=== PATIENT | female | born 1935 | race Caucasian/White ===

== ENCOUNTER 2019-04-29 20:38 | Inpatient (IN) | payer MEDICARE, OTHER ==
[2019-04-29] MEDS ORDERED: HYDROmorphone 1 MG/ML Syringe IVPUSH STA (22:09)
[2019-04-29] MEDS ORDERED: Ondansetron 4 MG/2 ML SDV IVPUSH ONE (22:09)
--- NOTE | 2019-04-29 22:19 | EDM.PDOC ---
ED HPI GENERAL MEDICAL PROBLEM - General Chief Complaint: Cardiovascular Problem Stated Complaint: NECK PAIN NAUSEA Time Seen by Provider: 04/29/19 21:21 Source of Information: Reports: Patient, Family (, daughter) History Limitations: Reports: No Limitations - History of Present Illness INITIAL COMMENTS - FREE TEXT/NARRATIVE: Mrs. Cook is a pleasant 84-year-old woman with a past medical history significant for paroxysmal atrial fib/flutter, on Eliquis and Coreg. The patient states that she developed generalized weakness this morning, then nausea , vomiting, and epigastric abdominal pain that radiated up her central chest and to her right scapular area around 17:00 this evening, while eating dinner that consisted of a tater-tot hot plate. Around 20:00, the pain began radiating up to the left side of her neck. Here in the ED, the patient's initial ECG finds her to be in atrial flutter with 2:1 conduction. According to the patient' s daughter and , who accompanied her to the ED tonight, the first documented case of atrial fib/flutter was on 11/13/2018, however, the symptoms that she experienced were similar to 3 years ago, although at that time she was not found to be in atrial fibrillation or flutter. They state that the patient was eating pizza when her symptoms began on 11/13/2018, and steak when her symptoms began 3 years ago. The patient has a history of a hiatal hernia and GERD, for which she takes pantoprazole every morning, however, her daughter tells me that she forgot to take it this morning. She attempted to take it around 19:00 tonight, but by that time she was already vomiting. Medical records provided by the patient's daughter indicate that the patient underwent an echocardiogram on 04/03/2019, finding a LVEF of 65-70% and grade 1 diastolic dysfunction. The patient's PCP is Dr. Isaias Corbett. Her peer educator is Dr. Cammie Gallego. The patient did not receive an influenza vaccine this season, and declined to receive one here. Left Chest Pain Score (Numeric/FACES): 10 - Related Data Allergies Allergy/AdvReac Type Severity Reaction Status Date / Time clindamycin Allergy Cannot Verified 04/29/19 20:54 Remember Penicillins Allergy Cannot Verified 04/29/19 20:54 Remember shellfish derived Allergy Cannot Verified 04/29/19 20:54 Remember morphine AdvReac Anxiety Verified 04/29/19 20:54 pumice Allergy Swelling Uncoded 04/29/19 20:54 Home Meds: Home Meds Pantoprazole [ProTONIX Granules] 40 mg PO DAILY #14 packet 02/09/14 [Rx] Enalapril Maleate 5 mg PO DAILY 11/13/18 [History] Apixaban [Eliquis] 5 mg PO BID #30 tablet 11/16/18 [Rx] Chlorthalidone 12.5 mg PO DAILY 04/29/19 [History] Vitamin B Complex 1 each PO DAILY 04/29/19 [History] atorvaSTATin [Lipitor] 10 mg PO DAILY 04/29/19 [History] carvediloL [Coreg] 3.125 mg PO BID 04/29/19 [History] Past Medical History HEENT History: Reports: Impaired Vision Other HEENT History: wears eyeglasses Cardiovascular History: Reports: Afib (paroxysmal), High Cholesterol, Hypertension Gastrointestinal History: Reports: Colon Polyp, Diverticulosis, GERD, Hiatal Hernia [employer] History: Reports: Musculoskeletal History: Reports: Osteoarthritis - Infectious Disease History Infectious Disease History: Reports: Chicken Pox, Measles - Past Surgical History HEENT Surgical History: Reports: Cataract Surgery, Tonsillectomy GI Surgical History: Reports: Colonoscopy (x 2 or 3), EGD (x 1) Female Surgical History: Reports: Hysterectomy (complete) Musculoskeletal Surgical History: Reports: Knee Replacement (bilateral) Oncologic Surgical History: Reports: Biopsy of Breast (right - benign) Social & Family History - Family History Family Medical History: Noncontributory - Tobacco Use Smoking Status *Q: Never Smoker - Caffeine Use Caffeine Use: Reports: Coffee - Alcohol Use Alcohol Use History: No - Recreational Drug Use Recreational Drug Use: No - Living Situation & Occupation Living situation: Reports: , with Spouse Occupation: Retired ED ROS GENERAL - Review of Systems Review Of Systems: Comprehensive ROS is negative, except as noted in HPI. ED EXAM, GENERAL - Physical Exam Exam: See Below Exam Limited By: No Limitations General Appearance: Alert, WD/WN, Mild Distress (vomited) Eye Exam: Bilateral Eye: EOMI, Normal Inspection Ears: Normal External Exam, Hearing Grossly Normal Nose: Normal Inspection Throat/Mouth: Normal Inspection, Normal Lips, Normal Voice, No Airway Compromise Head: Atraumatic, Normocephalic Neck: Normal Inspection, Full Range of Motion Respiratory/Chest: No Respiratory Distress, Lungs Clear, Normal Breath Sounds, No Accessory Muscle Use Cardiovascular: Normal Peripheral Pulses, Regular Rate, Rhythm (at the time of my exam), No Edema, No Gallop, No JVD, No Murmur, No Rub Peripheral Pulses: 4+: Radial (L), Radial (R) GI/Abdominal: Normal Bowel Sounds, Soft, Non-Tender (palpation of the abdomen induces epigastric pain and pain travelling up central chest), No Organomegaly, No Distention, No Abnormal Bruit, No Mass (Female) Exam: Deferred Rectal (Female) Exam: Deferred Back Exam: Normal Inspection, Full Range of Motion. No: CVA Tenderness (L), CVA Tenderness (R) Extremities: Normal Inspection, Normal Range of Motion, No Pedal Edema, Normal Capillary Refill Neurological: Alert, Oriented, Normal Cognition, No Motor/Sensory Deficits Psychiatric: Normal Affect Skin Exam: Warm, Dry, Intact, Normal Color, No Rash EKG INTERPRETATION EKG Date: 04/29/19 Time: 20:48 Rhythm: A-Flutter (2:1 conduction) Rate (Beats/Min): 139 [place]: Normal P-Wave: Absent QRS: Normal ST-T: Depressed (anterior leads, likely 2 rate) QT: Prolonged (QTc 539 ms) Comparison: No Change (11/13/2018 @ 19:05) Course - Vital Signs Last Recorded V/S: Last Vital Signs Temp 35.9 C 04/29/19 20:49 Pulse 137 H 04/29/19 20:49 Resp 15 04/30/19 03:00 BP 146/95 H 04/29/19 20:49 Pulse Ox 97 04/29/19 20:49 - Orders/Labs/Meds Orders: Active Orders 24 hr Category Date Time Status EKG 12 Lead [EKG Documentation Completion] [RC] ROUTINE Care 04/29/19 20:50 Active EKG Documentation Completion [RC] STAT Care 04/29/19 22:13 Active Abdomen Pelvis w Cont [CT] Stat Exams 04/29/19 22:09 Taken Chest 1V Frontal [CR] Stat Exams 04/29/19 22:11 Taken TROPONIN I [CHEM] Stat Lab 04/30/19 06:44 Ordered Diltiazem 125 mg Med 04/29/19 23:00 Active Sodium Chloride 0.9% [Normal Saline] 100 ml IV TITRATE Sodium Chloride 0.9% [Normal Saline] 1,000 ml Med 04/29/19 22:15 Active IV ASDIRECTED Medication Orders Sodium Chloride (Normal Saline) 1,000 mls @ 150 mls/hr IV ASDIRECTED ELIF Last Admin: 04/29/19 22:23 Dose: 150 mls/hr Diltiazem HCl 125 mg/ Sodium (Chloride) 125 mls @ 5 mls/hr IV TITRATE ELIF; Protocol Last Titration: 04/30/19 03:55 Dose: 0 mg/hr, 0 mls/hr Admin: 04/30/19 00:35 Dose: 5 mg/hr, 5 mls/hr Labs: Laboratory Tests 04/29/19 04/29/19 04/29/19 Range/Units 20:50 20:50 22:32 WBC 10.48 H (3.98-10.04) K/mm3 RBC 4.85 (3.98-5.22) M/mm3 Hgb 15.3 D (11.2-15.7) gm/dl Hct 45.1 H (34.1-44.9) % MCV 93.0 (79.4-94.8) fl MCH 31.5 (25.6-32.2) pg MCHC 33.9 (32.2-35.5) g/dl RDW Std Deviation 49.0 H (36.4-46.3) fL Plt Count 238 (182-369) K/mm3 MPV 12.3 (9.4-12.3) fl Neutrophils % (Manual) 69 H (40-60) % Band Neutrophils % 3 (0-10) % Lymphocytes % (Manual) 26 (20-40) % Atypical Lymphs % 0 % Monocytes % (Manual) 1 L (2-10) % Eosinophils % (Manual) 1 (0.7-5.8) % Basophils % (Manual) 0 L (0.1-1.2) Platelet Estimate Adequate RBC Morph Comment Normal Sodium 142 (136-145) mEq/L Potassium 3.9 (3.5-5.1) mEq/L Chloride 103 (98-107) mEq/L Carbon Dioxide 30 (21-32) mEq/L Anion Gap 12.9 (5-15) BUN 31 H (7-18) mg/dL Creatinine 1.2 H (0.55-1.02) mg/dL Est Cr Clr Drug Dosing 25.51 mL/min Estimated GFR (MDRD) 43 (>60) mL/min BUN/Creatinine Ratio 25.8 H (14-18) Glucose 153 H (83-115) mg/dL Calcium 9.7 (8.5-10.1) mg/dL Magnesium 1.9 (1.8-2.4) mg/dl Total Bilirubin 0.6 (0.2-1.0) mg/dL AST 19 (15-37) U/L ALT 22 (14-59) U/L Alkaline Phosphatase 73 (46-116) U/L Troponin I < 0.017 (0.00-0.056) ng/mL Total Protein 7.4 (6.4-8.2) g/dl Albumin 4.4 (3.4-5.0) g/dl Globulin 3.0 gm/dL Albumin/Globulin Ratio 1.5 (1-2) Lipase 194 (73-393) U/L TSH 3rd Generation 7.539 H (0.358-3.74) uIU/mL Urine Color Yellow (Yellow) Urine Appearance Clear (Clear) Urine pH 5.5 (5.0-8.0) Ur Specific [place] > or = 1.030 (1.005-1.030) Urine Protein 1+ H (Negative) Urine Glucose (UA) Negative (Negative) Urine Ketones 2+ H (Negative) Urine Occult Blood 1+ H (Negative) Urine Nitrite Negative (Negative) Urine Bilirubin Negative (Negative) Urine Urobilinogen 0.2 (0.2-1.0) Ur Leukocyte Esterase Negative (Negative) Urine RBC 0-5 (0-5) /hpf Urine WBC Not seen (0-5) /hpf Ur Epithelial Cells Not seen (0-5) /hpf Urine Bacteria Few (FEW) /hpf Hyaline Casts 0-5 (0-5) /lpf Urine Mucus Few (FEW) /hpf Meds: Medications Generic Name Dose Route Start Last Admin Trade Name Freq PRN Reason Stop Dose Admin Sodium Chloride 1,000 mls @ 150 mls/hr 04/29/19 22:15 04/29/19 22:23 Normal Saline IV 150 mls/hr ASDIRECTED ELIF Administration Diltiazem HCl 125 mg/ Sodium 125 mls @ 5 mls/hr 04/29/19 23:00 04/30/19 03:55 Chloride IV 0 mg/hr TITRATE ELIF 0 mls/hr Titration Protocol 5 MG/HR Discontinued Medications Generic Name Dose Route Start Last Admin Trade Name Mariah PRN Reason Stop Dose Admin Hydromorphone HCl 0.5 mg 04/29/19 22:09 04/29/19 22:22 Dilaudid IVPUSH 04/29/19 22:10 0.5 mg ONETIME STA Administration Hydromorphone HCl 0.5 mg 04/30/19 00:36 04/30/19 06:39 Dilaudid IVPUSH 04/30/19 00:37 Not Given ONETIME ONE Hydromorphone HCl 0.5 mg 04/30/19 03:36 04/30/19 03:38 Dilaudid IVPUSH 04/30/19 03:37 0.5 mg ONETIME ONE Administration Hydromorphone HCl Confirm 04/30/19 03:36 04/30/19 06:39 Dilaudid Administered 04/30/19 03:37 Not Given Dose 0.5 mg .ROUTE .STK-MED ONE Ondansetron HCl 4 mg 04/29/19 22:09 04/29/19 22:22 Zofran IVPUSH 04/29/19 22:10 4 mg ONETIME ONE Administration Ondansetron HCl 4 mg 04/30/19 03:36 04/30/19 03:38 Zofran IVPUSH 04/30/19 03:37 4 mg ONETIME ONE Administration Ondansetron HCl Confirm 04/30/19 03:35 04/30/19 06:39 Zofran Administered 04/30/19 03:36 Not Given Dose 4 mg .ROUTE .STK-MED ONE - Re-Assessments/Exams Free Text/Narrative Re-Assessment/Exam: 04/29/19 22:12 The patient's initial ECG, obtained by her nurse, found her to be in atrial flutter with 2:1 conduction, however, when I was examining the patient, her secured entrance monitor indicated that she was in a normal sinus rhythm. Looking at her secured entrance monitor at this time, the patient appears to be in atrial fibrillation with RVR. I will order a second ECG to confirm. The exact etiology of the patient's symptoms is not clear. She has similar symptoms to what she was experiencing on 11/13/2018, and was found at that time to be in A-fib/flutter with RVR. Her symptoms resolved after she converted to a normal sinus rhythm. This would suggest that her symptoms were due to the A-fib/ flutter, however, while the patient was in A-flutter initially tonight, her symptoms have persisted even though she has converted, at least temporarily, to a normal sinus rhythm. The patient is reporting epigastric pain radiating upper chest, strongly suggesting that her symptoms are due to GERD, especially since the daughter notes to me that the patient forgot to take her pantoprazole this morning. There is always the possibility, however, that the patient is suffering from recurrent biliary colic. Less likely, the patient is suffering from pancreatitis. I have ordered a workup that includes a lipase and a CT scan of her abdomen and pelvis, primarily to rule out other etiologies. In the meantime, the patient will be given Dilaudid, Zofran, and IV fluid. 04/29/19 23:00 The patient's second ECG, dated 04/29/2019 at 22:31, demonstrates atrial fibrillation with RVR at 122 bpm and there are 2 PVCs. There are mild ST depressions in II and V2-V6, but with no T-wave inversions. There is late transition. 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 No LVH or RVH. No intraventricular conduction delays. The QTc is prolonged at 503 ms. Due to the atrial fibrillation, I have ordered a diltiazem drip to be started at 5 mg/hr. 04/29/19 23:07 It appears that the patient is back in a normal sinus rhythm. I have discussed this with the patient's nurse, Rita MACE. I will leave the diltiazem order in place, and Rita MACE will start the diltiazem only if the patient returns to atrial fibrillation with RVR. 04/29/19 23:57 Portable chest radiograph reviewed. There is cardiomegaly, but no pulmonary vascular congestion or pleural effusions seen on this AP view to suggest decompensated CHF. No focal infiltrate. No pneumothorax. There is a large hiatal hernia. Formal read per the Radiologist pending. The patient's CBC is remarkable for a WBC count mildly elevated at 10.48, with 3 % bandemia. Her Hct is slightly elevated at 45.1, with the remainder of her CBC being unremarkable. Her CMP is remarkable for a BUN/Cr being elevated at 31/1.2, and a blood glucose being elevated at 153. The remainder of her CMP is unremarkable. Her magnesium level is within normal limits at 1.9. Her lipase level is within normal limits at 194. Her troponin is undetectably low. Her TSH is substantially elevated at 7.539. Her urinalysis is unremarkable. The patient's BUN/Cr was 25/1.1 on 11/14/2018, with a blood glucose of 149. 04/30/19 01:01 CT of the abdomen and pelvis with oral and IV contrast is read by Maxine as " There is a moderate-sized hiatal hernia." With respect to the gallbladder, the body of the report reads "No calcified gallstones. No ductal dilation." 04/30/19 01:29 Test results discussed with the patient and her daughter; the patient's has gone home. The patient is still complaining of some pain and nausea. As best I can tell, the patient's pain is due to GERD, not due to gallbladder disease. She has been given 2 doses of Dilaudid 0.5 mg so far, and may have as much as she wants, however, she was notified that one of the side effects of Dilaudid is nausea. As we speak, the patient appears to be in a normal sinus rhythm, but the plan will be to keep her here in the ED overnight and give her diltiazem as needed when she goes into either atrial fibrillation or atrial flutter. I will then contact the Hospitalist in the morning to see if he would agree to placing the patient into observation. Both patient and her daughter are agreeable. 04/30/19 06:40 The patient has been in a normal sinus rhythm, not requiring any diltiazem, for the past several hours. She told Rita MACE that she is feeling considerably better. Case discussed with Dr. Gonsalez at 06:36. He is willing to place the patient into observation, if the patient wishes to come in. 04/30/19 06:43 The above was discussed with the patient. She states that in fact she is not feeling very well, and would prefer to come in. Although the patient's initial troponin was drawn about 4 hours after the onset of her symptoms and was undetectably low, I will order a second troponin now, for Dr. Gonsalez to review. Departure - Departure Time of Disposition: 06:45 Disposition: Refer to Observation Condition: Good Clinical Impression: Atrial fibrillation and flutter, GERD (gastroesophageal reflux disease), Chronic renal insufficiency, Hyperglycemia, Hypothyroid Referrals: Isaias Corbett Jr, MD [Primary Care Provider] - Cammie Gallego MD [Physician] - Forms: ED Department Discharge Sepsis Event Note - Evaluation Sepsis Screening Result: No Definite Risk - Focused Exam Vital Signs: Vital Signs Temp Pulse Resp BP Pulse Ox 04/30/19 03:00 15 04/30/19 02:00 14 04/30/19 01:35 16 04/29/19 20:49 35.9 C 137 H 18 146/95 H 97 Date Exam was Performed: 04/30/19 Time Exam was Performed: 06:48 - My Orders Last 24 Hours: My Active Orders 04/29/19 20:50 EKG 12 Lead [EKG Documentation Completion] [RC] ROUTINE 04/29/19 22:09 Abdomen Pelvis w Cont [CT] Stat 04/29/19 22:11 Chest 1V Frontal [CR] Stat 04/29/19 22:13 EKG Documentation Completion [RC] STAT 04/29/19 22:15 Sodium Chloride 0.9% [Normal Saline] 1,000 ml IV ASDIRECTED 04/29/19 23:00 Diltiazem 125 mg Sodium Chloride 0.9% [Normal Saline] 100 ml IV TITRATE 04/30/19 06:44 TROPONIN I [CHEM] Stat - Assessment/Plan Last 24 Hours: My Active Orders 04/29/19 20:50 EKG 12 Lead [EKG Documentation Completion] [RC] ROUTINE 04/29/19 22:09 Abdomen Pelvis w Cont [CT] Stat 04/29/19 22:11 Chest 1V Frontal [CR] Stat 04/29/19 22:13 EKG Documentation Completion [RC] STAT 04/29/19 22:15 Sodium Chloride 0.9% [Normal Saline] 1,000 ml IV ASDIRECTED 04/29/19 23:00 Diltiazem 125 mg Sodium Chloride 0.9% [Normal Saline] 100 ml IV TITRATE 04/30/19 06:44 TROPONIN I [CHEM] Stat
[2019-04-29] MEDS: Sodium Chloride 0.9% 1,000 ML IV SCH (22:23)
[2019-04-29] MEDS ORDERED: Diltiazem 125 MG in Sodium Chloride 0.9% 100 ML IV SCH (23:00)
[2019-04-30] MEDS ORDERED: HYDROmorphone 0.5 MG/0.5 ML Syringe IVPUSH ONE ×2 (00:36→03:36)
[2019-04-30] MEDS ORDERED: Ondansetron 4 MG/2 ML SDV ONE (03:35)
[2019-04-30] MEDS ORDERED: Ondansetron 4 MG/2 ML SDV IVPUSH ONE (03:36)
[2019-04-30] MEDS ORDERED: HYDROmorphone 0.5 MG/0.5 ML Syringe ONE (03:36)
--- NOTE | 2019-04-30 09:39 | US ---
Abdominal ultrasound: Multiple real-time images of the abdomen were obtained. Comparison: Previous CT study of the abdomen and pelvis dated 04/29/19. Visualized portions of the pancreas shows no discrete abnormality. Liver shows no focal abnormality. Gallbladder contains no shadowing gallstones. No gallbladder wall thickening is seen. Common bile duct measures within normal limits. Right kidney shows no hydronephrosis or mass and has a length of 9.7 cm. Left kidney is smaller than the right kidney with generalized cortical atrophy. Left kidney measures 8.3 cm in size. Spleen size is normal. Aorta shows no aneurysm. Inferior vena cava is patent. Portal vein shows normal hepatopedal flow. Impression: 1. Cortical thinning of the left kidney compatible with atrophy. 2. No additional abnormality is appreciated on abdominal ultrasound exam. Diagnostic code #2 This report was dictated in [place] Standard Time
--- NOTE | 2019-04-30 11:03 | CT ---
CT abdomen and pelvis Technique: Multiple axial sections were obtained from above the dome of the diaphragm inferiorly through the pubic symphysis. Delayed images were also obtained through the abdomen and pelvis. Intravenous contrast was utilized. No oral contrast has been given. Comparison: Prior CT abdomen and pelvis exam of 11/13/18. Findings: Moderately large hiatal hernia is noted. Findings are stable from previous exam. Visualized lung bases show nothing acute. Liver contains no focal parenchymal abnormality. Spleen appears normal in size. Small low density lesion is seen inferiorly within the spleen measuring 7 mm. This is not definitely appreciated on the prior noncontrast exam. This is most likely benign. Adrenal glands show no nodule. Pancreas is within normal limits. Cortical thinning noted within the left kidney compatible with generalized atrophy. Small low density finding is noted within the right kidney most likely representing a minimal cortical cyst. Aorta shows diffuse atherosclerotic calcification with no aneurysm. This atherosclerotic calcification continues into the iliac vessels. No retroperitoneal adenopathy is seen. No pelvic mass or adenopathy is noted. No free fluid or inflammatory change is identified. Appendix felt to be visualized and is normal in size. Descending colon shows diverticuli with no inflammatory change. Diverticuli are also noted within portions of the sigmoid colon. Delayed images show contrast within nondilated ureters as well as contrast within the bladder. Diffuse degenerative change is noted within the spine with scoliosis. No acute osseous finding is seen. Impression: 1. Multiple findings as noted above. 2. Nothing acute is appreciated on CT study of the abdomen and pelvis. Diagnostic code #2 This report was dictated in [place] Standard Time I agree with preliminary report issued by [facility] ([facility] report finalized on 04/30/19, 1:45 AM Central Time.
[2019-04-30] MEDS ORDERED: Acetaminophen 325 MG Tab PO PRN (11:30)
[2019-04-30] MEDS ORDERED: Ondansetron 4 MG/2 ML SDV IV PRN (11:30)
--- NOTE | 2019-04-30 11:39 | PCM.HP.2 ---
H&P History of Present Illness - General Date of Service: 04/30/19 Admit Problem/Dx: Admission Diagnosis/Problem Admission Diagnosis/Problem Afib, Atrial fibrillation and flutter - History of Present Illness Initial Comments - Free Text/Narative: Patient presented to the emergency room last night after eating a hamburger hot dish and developing chest pressure after she was unable to swallow a bite. Patient started to vomit and developed shortness of breath. Patient was then brought to the emergency room where she was in and out of atrial fibrillation and atrial flutter requiring a diltiazem drip to be started, stopped, and then restarted. Patient had a similar episode occur in November and was started on Coreg 6.25 mg twice daily. Patient was unable to take her evening dose of Coreg and has not had the morning dose. Patient did see her core blower operator on April 16 and had a Liv scan Cardiolite stress test in November. Both were reportedly normal. Currently patient is back into sinus rhythm and not on her diltiazem drip. CT scan performed previously showed a large hiatal hernia and a repeat CT scan done in the emergency room confirmed a nonprogressive hiatal hernia. Multiple abnormal findings on CT scan but nothing acute. Abdominal ultrasound was also performed which showed thinning of the renal cortices but no gallstones or dilatation of the common bile duct. Echocardiogram done on April 03, 2019 showed a normal left ventricular ejection fraction of 65 to 70 % with grade 1 diastolic dysfunction. EKG done last night showed atrial flutter with a 2-1 conduction at 140 bpm. Depressed anterior leads likely secondary to rate. Prolonged QTC at 539 ms. Laboratory test in the emergency room: WBC 10.48, hemoglobin 15.3, platelets 238 , sodium 142, potassium 3.9, BUN 31, creatinine 1.2, estimated GFR 43 with creatinine clearance drug dosing of 25.5. UA negative for WBCs and 0-5 RBCs. TSH is elevated at 7.539, in November it was 4.104 with a normal free T4. Left Chest Pain Score (Numeric/FACES): 10 - Related Data Allergies/Adverse Reactions: Allergies Allergy/AdvReac Type Severity Reaction Status Date / Time clindamycin Allergy Cannot Verified 04/30/19 09:44 Remember iodine Allergy Anaphylactic Verified 04/30/19 09:45 Shock Penicillins Allergy Cannot Verified 04/30/19 09:44 Remember shellfish derived Allergy Cannot Verified 04/30/19 09:44 Remember morphine AdvReac Anxiety Verified 04/30/19 09:44 pumice Allergy Swelling Uncoded 04/30/19 09:44 Home Medications: Home Meds Pantoprazole [ProTONIX Granules] 40 mg PO DAILY #14 packet 02/09/14 [Rx] Enalapril Maleate 5 mg PO DAILY 11/13/18 [History] Apixaban [Eliquis] 5 mg PO BID #30 tablet 11/16/18 [Rx] Chlorthalidone 12.5 mg PO DAILY 04/29/19 [History] Vitamin B Complex 1 each PO DAILY 04/29/19 [History] atorvaSTATin [Lipitor] 10 mg PO DAILY 04/29/19 [History] carvediloL [Coreg] 3.125 mg PO BID 04/29/19 [History] Past Medical History HEENT History: Reports: Impaired Vision Other HEENT History: Wears eyeglasses and partial upper dentures. Cardiovascular History: Reports: Afib, High Cholesterol, Hypertension Other Cardiovascular History: Paroxysmal A. 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: Musculoskeletal History: Reports: Osteoarthritis Neurological History: Reports: Migraines Psychiatric History: Reports: None Endocrine/Metabolic History: Reports: Obesity/BMI 30+ Hematologic History: Reports: Anticoagulation Therapy Immunologic History: Reports: None Oncologic (Cancer) History: Reports: None Dermatologic History: Reports: None - Infectious Disease History Infectious Disease History: Reports: Chicken Pox, Measles - Past Surgical History HEENT Surgical History: Reports: Cataract Surgery, Tonsillectomy GI Surgical History: Reports: Colonoscopy, EGD Female Surgical History: Reports: Hysterectomy Musculoskeletal Surgical History: Reports: Knee Replacement Oncologic Surgical History: Reports: Biopsy of Breast Social & Family History - Family History Family Medical History: Noncontributory - Tobacco Use Smoking Status *Q: Never Smoker Second Hand Smoke Exposure: No - Caffeine Use Caffeine Use: Reports: Coffee - Recreational Drug Use Recreational Drug Use: No - Living Situation & Occupation Living situation: Reports: , with Spouse Occupation: Retired H&P Review of Systems - Review of Systems: Review Of Systems: Comprehensive ROS is negative, except as noted in HPI. Exam - Exam Exam: See Below - Vital Signs Vital Signs: Last Vital Signs Temp 96.7 F 04/29/19 20:49 Pulse 137 H 04/29/19 20:49 Resp 15 04/30/19 03:00 BP 146/95 H 04/29/19 20:49 Pulse Ox 97 04/29/19 20:49 Weight: 156 lb 12.8 oz - Exam Quality Assessment: No: Supplemental Oxygen General: Alert, Oriented, 4 HEENT: Conjunctiva Clear, EOMI, Hearing Intact, Mucosa Moist & [place], Pupils Equal Neck: Supple Lungs: Clear to Auscultation, Normal Respiratory Effort Cardiovascular: Regular Rate, Regular Rhythm, Systolic Murmur GI/Abdominal Exam: Normal Bowel Sounds, Soft, No Organomegaly, No Distention, No Abnormal Bruit, Tender (Mild epigastric tenderness without guarding or rebound.) Extremities: Normal Inspection, Normal Range of Motion, Non-Tender, No Pedal Edema Skin: Warm, Dry, Intact Neuro Extensive - Mental Status: Alert, Oriented x3 Neuro Extensive - Motor, Sensory, Reflexes: CN II-XII Intact Psychiatric: Alert, Normal Affect, Normal Mood - Patient Data Lab Results Last 24 hrs: Laboratory Results - last 24 hr 04/29/19 04/29/19 04/29/19 Range/Units 20:50 20:50 22:32 WBC 10.48 H (3.98-10.04) K/mm3 RBC 4.85 (3.98-5.22) M/mm3 Hgb 15.3 D (11.2-15.7) gm/dl Hct 45.1 H (34.1-44.9) % MCV 93.0 (79.4-94.8) fl MCH 31.5 (25.6-32.2) pg MCHC 33.9 (32.2-35.5) g/dl RDW Std Deviation 49.0 H (36.4-46.3) fL Plt Count 238 (182-369) K/mm3 MPV 12.3 (9.4-12.3) fl Neutrophils % (Manual) 69 H (40-60) % Band Neutrophils % 3 (0-10) % Lymphocytes % (Manual) 26 (20-40) % Atypical Lymphs % 0 % Monocytes % (Manual) 1 L (2-10) % Eosinophils % (Manual) 1 (0.7-5.8) % Basophils % (Manual) 0 L (0.1-1.2) Platelet Estimate Adequate RBC Morph Comment Normal Sodium 142 (136-145) mEq/L Potassium 3.9 (3.5-5.1) mEq/L Chloride 103 (98-107) mEq/L Carbon Dioxide 30 (21-32) mEq/L Anion Gap 12.9 (5-15) BUN 31 H (7-18) mg/dL Creatinine 1.2 H (0.55-1.02) mg/dL Est Cr Clr Drug Dosing 25.51 mL/min Estimated GFR (MDRD) 43 (>60) mL/min BUN/Creatinine Ratio 25.8 H (14-18) Glucose 153 H (83-115) mg/dL Calcium 9.7 (8.5-10.1) mg/dL Magnesium 1.9 (1.8-2.4) mg/dl Total Bilirubin 0.6 (0.2-1.0) mg/dL AST 19 (15-37) U/L ALT 22 (14-59) U/L Alkaline Phosphatase 73 (46-116) U/L Troponin I < 0.017 (0.00-0.056) ng/mL Total Protein 7.4 (6.4-8.2) g/dl Albumin 4.4 (3.4-5.0) g/dl Globulin 3.0 gm/dL Albumin/Globulin Ratio 1.5 (1-2) Lipase 194 (73-393) U/L TSH 3rd Generation 7.539 H (0.358-3.74) uIU/mL Urine Color Yellow (Yellow) Urine Appearance Clear (Clear) Urine pH 5.5 (5.0-8.0) Ur Specific [place] > or = 1.030 (1.005-1.030) Urine Protein 1+ H (Negative) Urine Glucose (UA) Negative (Negative) Urine Ketones 2+ H (Negative) Urine Occult Blood 1+ H (Negative) Urine Nitrite Negative (Negative) Urine Bilirubin Negative (Negative) Urine Urobilinogen 0.2 (0.2-1.0) Ur Leukocyte Esterase Negative (Negative) Urine RBC 0-5 (0-5) /hpf Urine WBC Not seen (0-5) /hpf Ur Epithelial Cells Not seen (0-5) /hpf Urine Bacteria Few (FEW) /hpf Hyaline Casts 0-5 (0-5) /lpf Urine Mucus Few (FEW) /hpf 04/30/19 Range/Units 07:11 WBC (3.98-10.04) K/mm3 RBC (3.98-5.22) M/mm3 Hgb (11.2-15.7) gm/dl Hct (34.1-44.9) % MCV (79.4-94.8) fl MCH (25.6-32.2) pg MCHC (32.2-35.5) g/dl RDW Std Deviation (36.4-46.3) fL Plt Count (182-369) K/mm3 MPV (9.4-12.3) fl Neutrophils % (Manual) (40-60) % Band Neutrophils % (0-10) % Lymphocytes % (Manual) (20-40) % Atypical Lymphs % % Monocytes % (Manual) (2-10) % Eosinophils % (Manual) (0.7-5.8) % Basophils % (Manual) (0.1-1.2) Platelet Estimate RBC Morph Comment Sodium (136-145) mEq/L Potassium (3.5-5.1) mEq/L Chloride (98-107) mEq/L Carbon Dioxide (21-32) mEq/L Anion Gap (5-15) BUN (7-18) mg/dL Creatinine (0.55-1.02) mg/dL Est Cr Clr Drug Dosing mL/min Estimated GFR (MDRD) (>60) mL/min BUN/Creatinine Ratio (14-18) Glucose (83-115) mg/dL Calcium (8.5-10.1) mg/dL Magnesium (1.8-2.4) mg/dl Total Bilirubin (0.2-1.0) mg/dL AST (15-37) U/L ALT (14-59) U/L Alkaline Phosphatase (46-116) U/L Troponin I 0.052 (0.00-0.056) ng/mL Total Protein (6.4-8.2) g/dl Albumin (3.4-5.0) g/dl Globulin gm/dL Albumin/Globulin Ratio (1-2) Lipase (73-393) U/L TSH 3rd Generation (0.358-3.74) uIU/mL Urine Color (Yellow) Urine Appearance (Clear) Urine pH (5.0-8.0) Ur Specific [place] (1.005-1.030) Urine Protein (Negative) Urine Glucose (UA) (Negative) Urine Ketones (Negative) Urine Occult Blood (Negative) Urine Nitrite (Negative) Urine Bilirubin (Negative) Urine Urobilinogen (0.2-1.0) Ur Leukocyte Esterase (Negative) Urine RBC (0-5) /hpf Urine WBC (0-5) /hpf Ur Epithelial Cells (0-5) /hpf Urine Bacteria (FEW) /hpf Hyaline Casts (0-5) /lpf Urine Mucus (FEW) /hpf Result Diagrams: 04/29/19 20:50 04/29/19 20:50 Sepsis Event Note - Evaluation Sepsis Screening Result: No Definite Risk - Focused Exam Vital Signs: Vital Signs Resp 04/30/19 03:00 15 04/30/19 02:00 14 04/30/19 01:35 16 Date Exam was Performed: 04/30/19 Time Exam was Performed: 14:48 Problem List Initiated/Reviewed/Updated: Yes Orders Last 24hrs: Active Orders 24 hr Category Date Time Status Admission Status [Patient Status] [ADT] Routine ADT 04/30/19 08:02 Active Oxygen Therapy [RC] PRN Care 04/30/19 11:30 Ordered Up ad Vanesa [RC] ASDIRECTED Care 04/30/19 11:30 Ordered VTE/DVT Education [RC] PER UNIT ROUTINE Care 04/30/19 11:30 Ordered Vital Signs [RC] Q4H Care 04/30/19 11:30 Ordered Heart Healthy Diet [DIET] Diet 04/30/19 Lunch Ordered Chest 1V Frontal [CR] Stat Exams 04/29/19 22:11 Taken CBC WITH AUTO DIFF [HEME] AM Lab 05/01/19 05:11 Ordered CMP [COMPREHENSIVE METABOLIC PN,CMP] [CHEM] AM Lab 05/01/19 05:11 Ordered MAGNESIUM [CHEM] AM Lab 05/01/19 05:11 Ordered T4 FREE [CHEM] Routine Lab 05/01/19 05:00 Ordered Acetaminophen [Tylenol] Med 04/30/19 11:30 Ordered 650 mg PO Q4H PRN Apixaban [Eliquis] Med 04/30/19 21:00 Ordered 5 mg PO BID Chlorthalidone Med 05/01/19 09:00 Ordered 12.5 mg PO DAILY Diltiazem 125 mg Med 04/29/19 23:00 Active Sodium Chloride 0.9% [Normal Saline] 100 ml IV TITRATE Enalapril [Vasotec] Med 05/01/19 09:00 Ordered 5 mg PO DAILY Ondansetron [Zofran] Med 04/30/19 11:30 Ordered 4 mg IV Q4H PRN Sodium Chloride 0.9% [Normal Saline] 1,000 ml Med 04/29/19 22:15 Active IV ASDIRECTED atorvaSTATin Med 05/01/19 09:00 Ordered 10 mg PO DAILY carvediloL [Coreg] Med 04/30/19 11:30 Ordered 3.125 mg PO BID Resuscitation Status Routine Resus Stat 04/30/19 11:30 Ordered Medication Orders Acetaminophen (Tylenol) 650 mg PO Q4H PRN PRN Reason: Pain (Mild 1-3)/fever Apixaban (Eliquis) 5 mg PO BID ELIF Carvedilol (Coreg) 3.125 mg PO BID ELIF Chlorthalidone (Chlorthalidone) 12.5 mg PO DAILY EL[facility] Enalapril Maleate (Vasotec) 5 mg PO DAILY ELIF Sodium Chloride (Normal Saline) 1,000 mls @ 150 mls/hr IV ASDIRECTED ELIF Last Admin: 04/29/19 22:23 Dose: 150 mls/hr Diltiazem HCl 125 mg/ Sodium (Chloride) 125 mls @ 5 mls/hr IV TITRATE ELIF; Protocol Last Titration: 04/30/19 03:55 Dose: 0 mg/hr, 0 mls/hr Admin: 04/30/19 00:35 Dose: 5 mg/hr, 5 mls/hr Non-Formulary Medication (Atorvastatin) 10 mg PO DAILY ELIF Ondansetron HCl (Zofran) 4 mg IV Q4H PRN PRN Reason: Nausea/Vomiting Assessment/Plan Comment:: Assessment * Atrial fibrillation with RVR * Currently in sinus rhythm * Initial troponin less than 0.017 and second troponin still negative at 0.05 * Dysphagia/esophageal spasm * Symptoms initiated with inability to swallow and chest and epigastric pressure. * Esophageal spasm likely cause of nausea, vomiting, abdominal and epigastric pain. * Stage III chronic renal insufficiency * Estimated GFR 43 with BUN 31 and creatinine 1.3 * Stable since November 2018 * Large hiatal hernia * Seen on CT scan in November and today. * No progression * Likely instigating some esophageal spasm contributing to dysphasia. * Elevated TSH * TSH 7.53. November 2018 TSH was 4.104 with normal free T4 Plan * Admit to ICU secondary to RVR requiring diltiazem drip in the emergency room * Treat nausea with Zofran and restart home meds * Add Reglan if needed for nausea. * Get free T4 to evaluate thyroid status * CBC, CMP, magnesium in the morning * Plan discharge in the morning if she stays in sinus rhythm. * Heart healthy diet. * On Eliquis for anticoagulation and VTE prophylaxis * CODE STATUS: DNR * Length of stay 1 to 2 days. - Mortality Measure Prognosis:: Good
[2019-04-30] MEDS: Apixaban 5 MG Tab PO SCH ×2 (11:51→20:35)
[2019-04-30] MEDS: Carvedilol 6.25 MG Tab PO SCH ×2 (11:51→20:36)
[2019-04-30] MEDS: Sodium Chloride 0.9% 1,000 ML IV SCH ×2 (11:53→19:06)
--- NOTE | 2019-04-30 12:45 | CR ---
Chest: Frontal view of the chest was obtained. Comparison: Prior chest x-ray of 11/13/18. Moderately large hiatal hernia is seen. Heart size appears within normal limits for technique. Tortuous thoracic aorta is seen. Lungs are clear with no acute parenchymal change. Bony structures are grossly intact. Impression: 1. Moderately large hiatal hernia. 2. Nothing acute is appreciated on frontal chest x-ray. Diagnostic code #2 This report was dictated in [place] Standard Time
[2019-04-30] MEDS ORDERED: Metoclopramide 10 MG/2 ML SDV IVPUSH PRN ×2 (13:57→14:35)
[2019-04-30] MEDS ORDERED: Simvastatin 10 MG Tab PO SCH (21:00)
[2019-05-01] MEDS: Sodium Chloride 0.9% 1,000 ML IV SCH (01:57)
[2019-05-01] MEDS ORDERED: Potassium Chloride 20 MEQ Tab.ER PO ONE (07:14)
[2019-05-01] MEDS: Carvedilol 6.25 MG Tab PO SCH (08:02)
[2019-05-01] MEDS: Apixaban 5 MG Tab PO SCH (08:06)
[2019-05-01 08:07] VITALS: PULSE 65
--- NOTE | 2019-05-01 08:16 | PCM.DCSUM1 ---
Discharge Summary - Hospital Course HPI Initial Comments: Patient presented to the emergency room last night after eating a hamburger hot dish and developing chest pressure after she was unable to swallow a bite. Patient started to vomit and developed shortness of breath. Patient was then brought to the emergency room where she was in and out of atrial fibrillation and atrial flutter requiring a diltiazem drip to be started, stopped, and then restarted. Patient had a similar episode occur in November and was started on Coreg 6.25 mg twice daily. Patient was unable to take her evening dose of Coreg and has not had the morning dose. Patient did see her hearing instrument specialist on April 16 and had a Liv scan Cardiolite stress test in November. Both were reportedly normal. Currently patient is back into sinus rhythm and not on her diltiazem drip. CT scan performed previously showed a large hiatal hernia and a repeat CT scan done in the emergency room confirmed a nonprogressive hiatal hernia. Multiple abnormal findings on CT scan but nothing acute. Abdominal ultrasound was also performed which showed thinning of the renal cortices but no gallstones or dilatation of the common bile duct. Echocardiogram done on April 03, 2019 showed a normal left ventricular ejection fraction of 65 to 70 % with grade 1 diastolic dysfunction. EKG done last night showed atrial flutter with a 2-1 conduction at 140 bpm. Depressed anterior leads likely secondary to rate. Prolonged QTC at 539 ms. Laboratory test in the emergency room: WBC 10.48, hemoglobin 15.3, platelets 238 , sodium 142, potassium 3.9, BUN 31, creatinine 1.2, estimated GFR 43 with creatinine clearance drug dosing of 25.5. UA negative for WBCs and 0-5 RBCs. TSH is elevated at 7.539, in November it was 4.104 with a normal free T4. Diagnosis: Stroke: No - Discharge Data Discharge Date: 05/01/19 Discharge Disposition: Home, Self-Care 01 Condition: Good - Referral to Home Health Primary Care Physician: Isaias Corbett Jr, MD - Patient Summary/Data Hospital Course: Patient was admitted to the ICU for monitoring and possible Cardizem drip. Patient had some nausea, but was treated with Zofran and Reglan. After being able to keep down her home medications she no longer needed to be placed on a Cardizem drip and was switched over to medical status. On the morning of discharge her potassium did go down to 3.1, this is likely secondary to IV fluids. Potassium was replenished orally before discharge. This will need to be rechecked in the next few days. Patient does have a large hiatal hernia and an episode of dysphagia and possible esophageal spasm appears to have instigated hospitalization secondary to rapid ventricular response on 2 occasions this year. This should likely be further evaluated by her primary care provider and or a GI specialist. No medications changes were done during this hospitalization. - Patient Instructions Diet: Heart Healthy Diet Driving: May Drive Today Showering/Bathing: May Shower Notify Provider of: Nausea and/or Vomiting Other/Special Instructions: Please see your PCP within the next week. You will need a follow up potassium level in the next few days. You may benefit from a GI consult secondary to your episode with difficulty swallowing. - Discharge Plan *PRESCRIPTION DRUG MONITORING PROGRAM REVIEWED*: No *COPY OF PRESCRIPTION DRUG MONITORING REPORT IN PATIENT DWAINE: No Home Medications: Home Meds Pantoprazole [ProTONIX Granules] 40 mg PO DAILY #14 packet 02/09/14 [Rx] Enalapril Maleate 5 mg PO DAILY 11/13/18 [History] Apixaban [Eliquis] 5 mg PO BID #30 tablet 11/16/18 [Rx] Chlorthalidone 12.5 mg PO DAILY 04/29/19 [History] Vitamin B Complex 1 each PO DAILY 04/29/19 [History] atorvaSTATin [Lipitor] 10 mg PO DAILY 04/29/19 [History] carvediloL [Coreg] 3.125 mg PO BID 04/29/19 [History] Oxygen Therapy Mode: Room Air Forms: ED Department Discharge Referrals: Cammie Gallego MD [Physician] - Isaias Corbett Jr, MD [Primary Care Provider] - - Discharge Summary/Plan Comment DC Time >30 min.: Yes Discharge Summary/Plan Comment: Follow-up with primary care provider in the next week. Get a potassium level drawn in the next few days. Discussed with your primary care provider further evaluation of your dysphagia. - General Info Date of Service: 05/01/19 Admission Dx/Problem (Free Text: Admission Diagnosis/Problem Admission Diagnosis/Problem Afib, Atrial fibrillation and flutter Subjective Update: Patient denies any nausea, vomiting, shortness of breath, or chest pain this morning. She states her fingers do feel more swollen today. Functional Status: Reports: Pain Controlled - Review of Systems General: Reports: No Symptoms HEENT: Reports: No Symptoms Pulmonary: Reports: No Symptoms Cardiovascular: Reports: No Symptoms Gastrointestinal: Reports: No Symptoms - Patient Data Vitals - Most Recent: Last Vital Signs Temp 97.8 F 05/01/19 04:00 Pulse 65 05/01/19 08:02 Resp 14 05/01/19 04:00 BP 119/57 L 05/01/19 08:05 Pulse Ox 88 L 05/01/19 04:01 Weight - Most Recent: 159 lb I&O - Last 24 hours: Intake & Output 04/30/19 05/01/19 05/01/19 22:59 06:59 14:59 Intake Total 210 1906 Output Total 200 Balance 210 1706 Lab Results - Last 24 hrs: Laboratory Results - last 24 hr 05/01/19 05/01/19 05/01/19 Range/Units 04:55 04:55 04:55 WBC 8.95 (3.98-10.04) K/mm3 RBC 3.78 L (3.98-5.22) M/mm3 Hgb 11.9 D (11.2-15.7) gm/dl Hct 35.9 (34.1-44.9) % MCV 95.0 H (79.4-94.8) fl MCH 31.5 (25.6-32.2) pg MCHC 33.1 (32.2-35.5) g/dl RDW Std Deviation 50.5 H (36.4-46.3) fL Plt Count 188 (182-369) K/mm3 MPV 11.7 (9.4-12.3) fl Neut % (Auto) 60.0 (34.0-71.1) % Lymph % (Auto) 25.6 (19.3-51.7) % [place] % (Auto) 14.1 H (4.7-12.5) % Eos % (Auto) 0.1 L (0.7-5.8) Baso % (Auto) 0.1 (0.1-1.2) % Neut # (Auto) 5.37 (1.56-6.13) K/mm3 Lymph # (Auto) 2.29 (1.18-3.74) K/mm3 [place] # (Auto) 1.26 H (0.24-0.36) K/mm3 Eos # (Auto) 0.01 L (0.04-0.36) K/mm3 Baso # (Auto) 0.01 (0.01-0.08) K/mm3 Sodium 139 (136-145) mEq/L Potassium 3.1 L (3.5-5.1) mEq/L Chloride 104 (98-107) mEq/L Carbon Dioxide 27 (21-32) mEq/L Anion Gap 11.1 (5-15) BUN 18 (7-18) mg/dL Creatinine 1.1 H (0.55-1.02) mg/dL Est Cr Clr Drug Dosing 27.83 mL/min Estimated GFR (MDRD) 47 (>60) mL/min BUN/Creatinine Ratio 16.4 (14-18) Glucose 100 (83-115) mg/dL Calcium 8.4 L (8.5-10.1) mg/dL Magnesium 3.5 H (1.8-2.4) mg/dl Total Bilirubin 0.8 (0.2-1.0) mg/dL AST 18 (15-37) U/L ALT 14 (14-59) U/L Alkaline Phosphatase 50 (46-116) U/L Total Protein 5.1 L (6.4-8.2) g/dl Albumin 2.8 L (3.4-5.0) g/dl Globulin 2.3 gm/dL Albumin/Globulin Ratio 1.2 (1-2) Free T4 0.98 (0.76-1.46) ng/dL Med Orders - Current: Current Medications Acetaminophen (Tylenol) 650 mg PO Q4H PRN PRN Reason: Pain (Mild 1-3)/fever Apixaban (Eliquis) 5 mg PO BID [facility] Last Admin: 05/01/19 08:06 Dose: 5 mg Carvedilol (Coreg) 3.125 mg PO BID [facility] Last Admin: 05/01/19 08:02 Dose: 3.125 mg Chlorthalidone (Chlorthalidone) 12.5 mg PO DAILY [facility] Last Admin: 05/01/19 08:06 Dose: 12.5 mg Enalapril Maleate (Vasotec) 5 mg PO DAILY [facility] Last Admin: 05/01/19 08:05 Dose: 5 mg Sodium Chloride (Normal Saline) 1,000 mls @ 150 mls/hr IV ASDIRECTED LEIF Last Admin: 05/01/19 01:57 Dose: 150 mls/hr Diltiazem HCl 125 mg/ Sodium (Chloride) 125 mls @ 5 mls/hr IV TITRATE ELIF; Protocol Last Titration: 04/30/19 03:55 Dose: 0 mg/hr, 0 mls/hr Metoclopramide HCl (Reglan) 5 mg IVPUSH Q6H PRN PRN Reason: Nausea Ondansetron HCl (Zofran) 4 mg IV Q4H PRN PRN Reason: Nausea/Vomiting Last Admin: 04/30/19 11:52 Dose: 4 mg Simvastatin (Zocor) 10 mg PO BEDTIME ELIF Last Admin: 04/30/19 20:36 Dose: 10 mg Discontinued Medications Hydromorphone HCl (Dilaudid) 0.5 mg IVPUSH ONETIME STA Stop: 04/29/19 22:10 Last Admin: 04/29/19 22:22 Dose: 0.5 mg Hydromorphone HCl (Dilaudid) 0.5 mg IVPUSH ONETIME ONE Stop: 04/30/19 00:37 Last Admin: 04/30/19 06:39 Dose: Not Given Hydromorphone HCl (Dilaudid) 0.5 mg IVPUSH ONETIME ONE Stop: 04/30/19 03:37 Last Admin: 04/30/19 03:38 Dose: 0.5 mg Hydromorphone HCl (Dilaudid) Confirm Administered Dose 0.5 mg .ROUTE .STK-MED ONE Stop: 04/30/19 03:37 Last Admin: 04/30/19 06:39 Dose: Not Given Metoclopramide HCl (Reglan) 10 mg IVPUSH Q6H PRN PRN Reason: Nausea Last Admin: 04/30/19 14:26 Dose: 10 mg Ondansetron HCl (Zofran) 4 mg IVPUSH ONETIME ONE Stop: 04/29/19 22:10 Last Admin: 04/29/19 22:22 Dose: 4 mg Ondansetron HCl (Zofran) 4 mg IVPUSH ONETIME ONE Stop: 04/30/19 03:37 Last Admin: 04/30/19 03:38 Dose: 4 mg Ondansetron HCl (Zofran) Confirm Administered Dose 4 mg .ROUTE .STK-MED ONE Stop: 04/30/19 03:36 Last Admin: 04/30/19 06:39 Dose: Not Given Potassium Chloride (Klor-Con M20) 40 meq PO ONETIME ONE Stop: 05/01/19 07:15 Last Admin: 05/01/19 08:02 Dose: 40 meq - Exam Quality Assessment: Denies: Supplemental Oxygen General: Reports: Alert, Oriented HEENT: Reports: Pupils Equal, EOMI, Mucous Membr. Moist/[place] Neck: Reports: Supple Lungs: Reports: Clear to Auscultation, Normal Respiratory Effort Cardiovascular: Reports: Regular Rate, Regular Rhythm GI/Abdominal Exam: Normal Bowel Sounds, Soft, Non-Tender, No Organomegaly Skin: Reports: Warm, Dry, Intact Psy/Mental Status: Reports: Alert, Normal Affect, Normal Mood
[2019-05-01 08:49] VITALS: BP 119/55
[2019-05-01] MEDS ORDERED: Enalapril 5 MG Tab PO SCH (09:00)
[2019-05-01] MEDS ORDERED: Chlorthalidone 25 MG Tab PO SCH (09:00)
== END 2019-05-01 08:58 | disposition home or self-care (01) | DRG 392 ==
LOC: JD.ED 20:38 → JD.ICU 04-30 07:48 → UNDOADMIN 04-30 07:48 → JD.MS 04-30 07:48 → JD.ICU 04-30 08:02
PROVIDERS: ADMIT Family Medicine; ATTEND Family Medicine
DX: K22.4 Dyskinesia of esophagus (principal); I48.92 Unspecified atrial flutter; I48.0 Paroxysmal atrial fibrillation; E03.9 Hypothyroidism, unspecified; K44.9 Diaphragmatic hernia without obstruction or gangrene; H54.7 Unspecified visual loss; I10 Essential (primary) hypertension; E78.00 Pure hypercholesterolemia, unspecified; Z96.653 Presence of artificial knee joint, bilateral; M19.90 Unspecified osteoarthritis, unspecified site; I12.9 Hypertensive chronic kidney disease with stage 1 through stage 4 chronic kidney disease, or unspecified chronic kidney disease; N18.3 Chronic kidney disease, stage 3 (moderate); E66.9 Obesity, unspecified; K21.9 Gastro-esophageal reflux disease without esophagitis; Z96.659 Presence of unspecified artificial knee joint; R94.31 Abnormal electrocardiogram [ECG] [EKG]; Z68.31 Body mass index [BMI] 31.0-31.9, adult; Z79.01 Long term (current) use of anticoagulants; Z98.49 Cataract extraction status, unspecified eye; Z90.89 Acquired absence of other organs; Z79.899 Other long term (current) drug therapy; Z88.1 Allergy status to other antibiotic agents; Z91.09 Other allergy status, other than to drugs and biological substances; Z88.0 Allergy status to penicillin; Z91.013 Allergy to seafood; Z88.8 Allergy status to other drugs, medicaments and biological substances; Z90.710 Acquired absence of both cervix and uterus; Z86.010 Personal history of colon polyps
CPT/HCPCS: 36415 ×2; 71045; 74177; 80053; 81001; 83690; 83735; 84443; 84484 ×2; 85007; 85027; 93005 ×2; J1170 ×2; J2405 ×2; J3490; J7030; J7050; 76700; 76700-26; 84439; 85025; 96365; 96366; 96375; 96376; 99285-25; A9270-GY; J2765

== ENCOUNTER 2020-08-23 22:21 | Inpatient (IN) | payer MEDICARE, OTHER ==
[2020-08-23] MEDS ORDERED: Diltiazem 100 MG in Sodium Chloride 0.9% 100 ML IV SCH (23:45)
[2020-08-23] MEDS ORDERED: Diltiazem 50 MG/10 ML SDV IVPUSH STA (23:51)
[2020-08-23] MEDS ORDERED: Ondansetron 4 MG/2 ML SDV IVPUSH ONE (23:54)
--- NOTE | 2020-08-23 23:58 | EDM.PDOC ---
ED HPI GENERAL MEDICAL PROBLEM - General Chief Complaint: Chest Pain Stated Complaint: SHOULDER/CHEST PAIN Time Seen by Provider: 08/23/20 23:36 Source of Information: Reports: Patient, Family (Daughter) History Limitations: Reports: No Limitations - History of Present Illness INITIAL COMMENTS - FREE TEXT/NARRATIVE: Mrs. Cook is a very pleasant 85-year-old woman with a past medical history significant for paroxysmal atrial fibrillation/atrial flutter, since 11/13/2018, who now presents the ED stating that she developed sudden-onset nausea, vomiting, abdominal pain, and left-sided chest pain that radiates to her left jaw, around 17:00 this evening, shortly after eating dinner. She states that she gets some relief of her symptoms after she vomits. The patient has had similar symptoms several times in the past, and, according to medical records from 04/29/2019, was seen by me in this ED with a similar presentation, and found to be in rapid atrial fibrillation. An ECG obtained at triage finds that the patient is in atrial fibrillation with RVR tonight, although the patient does not feel palpitations, rather, stating that when she is in atrial fibrillation, she just feels lousy. Here in the ED tonight, the patient's initial BP is found to be mildly elevated at 149/99, with tachycardia of 118 bpm. She is afebrile, saturating 92% on room air. Prior to this evening, the patient denies having a recent fever, chills, sore throat, ear pain, nasal or sinus congestion, cough, dyspnea, chest pain, palpitations, nausea, vomiting, constipation, diarrhea, abdominal pain, urinary symptoms, recent weight gain or weight loss, recent bloody bowel movements or black bowel movements, recent joint aches, headaches, or rashes. The patient does not currently have a PCP, but hopes to establish with Dr. Tate Madden. Her Horseback Riding Instructor is Dr. Cammie Gallego. Chest Pain Score (Numeric/FACES): 8 - Related Data Allergies Allergy/AdvReac Type Severity Reaction Status Date / Time clindamycin Allergy Cannot Verified 08/23/20 22:37 Remember iodine Allergy Anaphylactic Verified 08/23/20 22:37 Shock Penicillins Allergy Cannot Verified 08/23/20 22:37 Remember shellfish derived Allergy Cannot Verified 08/23/20 22:37 Remember morphine AdvReac Anxiety Verified 08/23/20 22:37 pumice Allergy Swelling Uncoded 08/23/20 22:37 Home Meds: Home Meds Enalapril Maleate 5 mg PO DAILY 11/13/18 [History] Chlorthalidone 12.5 mg PO DAILY 04/29/19 [History] atorvaSTATin [Lipitor] 10 mg PO DAILY 04/29/19 [History] carvediloL [Coreg] 3.125 mg PO BID 04/29/19 [History] Apixaban [Eliquis] 5 mg PO BID 08/23/20 [History] Past Medical History HEENT History: Reports: Impaired Vision (wears glasses) Cardiovascular History: Reports: Afib (paroxysmal), High Cholesterol, Hyper tension Gastrointestinal History: Reports: Colon Polyp, Diverticulosis, GERD, Hiatal Hernia Musculoskeletal History: Reports: Osteoarthritis - Infectious Disease History Infectious Disease History: Reports: Chicken Pox, Measles - Past Surgical History HEENT Surgical History: Reports: Tonsillectomy GI Surgical History: Reports: Colonoscopy (x 2 or 3), EGD (x 1) Female Surgical History: Reports: Hysterectomy (complete) Musculoskeletal Surgical History: Reports: Knee Replacement (bilateral) Oncologic Surgical History: Reports: Biopsy of Breast (right, benign) Social & Family History - Tobacco Use Tobacco Use Status *Q: Never Tobacco User Second Hand Smoke Exposure: No - Caffeine Use Caffeine Use: Reports: None - Alcohol Use Alcohol Use History: No - Recreational Drug Use Recreational Drug Use: No - Living Situation & Occupation Living situation: Reports: , with Spouse Occupation: Retired ED ROS GENERAL - Review of Systems Review Of Systems: Comprehensive ROS is negative, except as noted in HPI. ED EXAM, GENERAL - Physical Exam Exam: See Below Exam Limited By: No Limitations General Appearance: Alert, WD/WN, Mild Distress (appears uncomfortable) Eye Exam: Bilateral Eye: EOMI, Normal Inspection Ears: Normal External Exam, Hearing Grossly Normal Nose: Normal Inspection Throat/Mouth: Normal Inspection, Normal Lips, Normal Voice, No Airway Compromise Head: Atraumatic, Normocephalic Neck: Normal Inspection, Full Range of Motion Respiratory/Chest: No Respiratory Distress, Lungs Clear, Normal Breath Sounds, No Accessory Muscle Use Cardiovascular: Normal Peripheral Pulses, No Edema, No Gallop, No JVD, No Murmur, No Rub, Tachycardia, Irregularly Irregular Peripheral Pulses: 3+: Radial (L), Radial (R) GI/Abdominal: Normal Bowel Sounds, Soft, Non-Tender, No Organomegaly, No Distention, No Abnormal Bruit, No Mass Back Exam: Normal Inspection, Full Range of Motion, NT Extremities: Normal Inspection, Normal Range of Motion, No Pedal Edema, Normal Capillary Refill Neurological: Alert, Oriented, Normal Cognition, No Motor/Sensory Deficits Psychiatric: Normal Affect Skin Exam: Warm, Dry, Intact, Normal Color, No Rash #1 Interpretation EKG Date: 08/23/20 Time: 22:28 Rhythm: A-Fib Rate (Beats/Min): 135 Haslett: 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) P-Wave: Absent QRS: Other (Poor R-wave progression) ST-T: Depressed (V2-V6, but no T-wave inversions) QT: Prolonged (QTc 591 ms) #2 Interpretation EKG Date: 08/24/20 Time: 00:10 Rhythm: NSR Rate (Beats/Min): 61 Haslett: 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) P-Wave: Enlarged (LAE) QRS: Other (Poor R-wave progression) ST-T: Normal QT: Prolonged (QTc 485 ms) Comparison: Change From Previous EKG (Now in NSR, LAE visible, QTc prolongation nearly resolved) Course - Vital Signs Last Recorded V/S: Last Vital Signs Temp 36.7 C 08/24/20 02:29 Pulse 67 08/24/20 02:29 Resp 12 08/24/20 02:29 BP 159/79 H 08/24/20 02:29 Pulse Ox 97 08/24/20 02:29 - Orders/Labs/Meds Orders: Active Orders 24 hr Category Date Time Status Chest 1V Frontal [CR] Stat Exams 08/23/20 22:30 Taken Sodium Chloride 0.9% [Normal Saline] 1,000 ml Med 08/23/20 23:45 Active IV ASDIRECTED EKG 12 Lead [EK] Stat Ther 08/23/20 22:32 Stop Req Medication Orders Aspirin (Aspirin 325 Mg Tab.Ec) 325 mg PO DAILY ELIF Sodium Chloride (Normal Saline) 1,000 mls @ 100 mls/hr IV ASDIRECTED ELIF Last Admin: 08/24/20 00:02 Dose: 100 mls/hr Documented by: SCHMKAT Ondansetron HCl 8 mg/ Sodium (Chloride) 54 mls @ 216 mls/hr IV Q8H PRN PRN Reason: NAUSEA Lorazepam (Lorazepam 2 Mg/Ml Sdv) 0.5 mg IVPUSH Q6H PRN PRN Reason: Anxiety Pantoprazole Sodium (Pantoprazole 40 Mg Vial) 40 mg IVPUSH DAILY [facility] Labs: Laboratory Tests 08/23/20 08/23/20 08/23/20 Range/Units 22:30 22:30 22:30 WBC 9.12 (3.98-10.04) K/mm3 RBC 4.48 (3.98-5.22) M/mm3 Hgb 14.4 D (11.2-15.7) gm/dl Hct 43.4 (34.1-44.9) % MCV 96.9 H (79.4-94.8) fl MCH 32.1 (25.6-32.2) pg MCHC 33.2 (32.2-35.5) g/dl RDW Std Deviation 48.7 H (36.4-46.3) fL Plt Count 209 (182-369) K/mm3 MPV 11.4 (9.4-12.3) fl Neut % (Auto) 82.9 H (34.0-71.1) % Lymph % (Auto) 12.8 L (19.3-51.7) % [place] % (Auto) 4.1 L (4.7-12.5) % Eos % (Auto) 0.1 L (0.7-5.8) Baso % (Auto) 0.0 L (0.1-1.2) % Neut # (Auto) 7.56 H (1.56-6.13) K/mm3 Lymph # (Auto) 1.17 L (1.18-3.74) K/mm3 [place] # (Auto) 0.37 H (0.24-0.36) K/mm3 Eos # (Auto) 0.01 L (0.04-0.36) K/mm3 Baso # (Auto) 0.00 L (0.01-0.08) K/mm3 Sodium 140 (136-145) mEq/L Potassium 3.8 (3.5-5.1) mEq/L Chloride 99 (98-107) mEq/L Carbon Dioxide 28 (21-32) mEq/L Anion Gap 16.8 H (5-15) BUN 30 H (7-18) mg/dL Creatinine 1.2 H (0.55-1.02) mg/dL Est Cr Clr Drug Dosing TNP Estimated GFR (MDRD) 43 (>60) mL/min BUN/Creatinine Ratio 25.0 H (14-18) Glucose 168 H (83-115) mg/dL Calcium 9.4 (8.5-10.1) mg/dL Magnesium 1.9 (1.8-2.4) mg/dl Total Bilirubin 0.7 (0.2-1.0) mg/dL AST 28 (15-37) U/L ALT 29 (14-59) U/L Alkaline Phosphatase 85 (46-116) U/L Troponin I 0.034 (0.00-0.056) ng/mL C-Reactive Protein 0.4 (<1.0) mg/dL Total Protein 7.4 (6.4-8.2) g/dl Albumin 4.2 (3.4-5.0) g/dl Globulin 3.2 gm/dL Albumin/Globulin Ratio 1.3 (1-2) TSH 3rd Generation 6.677 H (0.358-3.74) uIU/mL SARS-CoV-2 RNA (LEN) (NEGATIVE) 08/24/20 Range/Units 01:17 WBC (3.98-10.04) K/mm3 RBC (3.98-5.22) M/mm3 Hgb (11.2-15.7) gm/dl Hct (34.1-44.9) % MCV (79.4-94.8) fl MCH (25.6-32.2) pg MCHC (32.2-35.5) g/dl RDW Std Deviation (36.4-46.3) fL Plt Count (182-369) K/mm3 MPV (9.4-12.3) fl Neut % (Auto) (34.0-71.1) % Lymph % (Auto) (19.3-51.7) % [place] % (Auto) (4.7-12.5) % Eos % (Auto) (0.7-5.8) Baso % (Auto) (0.1-1.2) % Neut # (Auto) (1.56-6.13) K/mm3 Lymph # (Auto) (1.18-3.74) K/mm3 [place] # (Auto) (0.24-0.36) K/mm3 Eos # (Auto) (0.04-0.36) K/mm3 Baso # (Auto) (0.01-0.08) K/mm3 Sodium (136-145) mEq/L Potassium (3.5-5.1) mEq/L Chloride (98-107) mEq/L Carbon Dioxide (21-32) mEq/L Anion Gap (5-15) BUN (7-18) mg/dL Creatinine (0.55-1.02) mg/dL Est Cr Clr Drug Dosing Estimated GFR (MDRD) (>60) mL/min BUN/Creatinine Ratio (14-18) Glucose (83-115) mg/dL Calcium (8.5-10.1) mg/dL Magnesium (1.8-2.4) mg/dl Total Bilirubin (0.2-1.0) mg/dL AST (15-37) U/L ALT (14-59) U/L Alkaline Phosphatase (46-116) U/L Troponin I (0.00-0.056) ng/mL C-Reactive Protein (<1.0) mg/dL Total Protein (6.4-8.2) g/dl Albumin (3.4-5.0) g/dl Globulin gm/dL Albumin/Globulin Ratio (1-2) TSH 3rd Generation (0.358-3.74) uIU/mL SARS-CoV-2 RNA (LEN) Negative (NEGATIVE) Meds: Medications Generic Name Dose Route Start Last Admin Trade Name Freq PRN Reason Stop Dose Admin Aspirin 325 mg 08/24/20 09:00 Aspirin 325 Mg Tab.Ec PO DAILY ELIF Sodium Chloride 1,000 mls @ 100 mls/hr 08/23/20 23:45 08/24/20 00:02 Normal Saline IV 100 mls/hr ASDIRECTED ELIF Administration Ondansetron HCl 8 mg/ Sodium 54 mls @ 216 mls/hr 08/24/20 03:51 Chloride IV Q8H PRN NAUSEA Lorazepam 0.5 mg 08/24/20 03:44 Lorazepam 2 Mg/Ml Sdv IVPUSH Q6H PRN Anxiety Pantoprazole Sodium 40 mg 08/24/20 09:00 Pantoprazole 40 Mg Vial IVPUSH DAILY ELIF Discontinued Medications Generic Name Dose Route Start Last Admin Trade Name Minaq PRN Reason Stop Dose Admin Diltiazem HCl 10 mg 08/23/20 23:51 08/24/20 04:27 Diltiazem 50 Mg/10 Ml Sdv IVPUSH 08/23/20 23:52 Not Given ONETIME STA Hydromorphone HCl 0.5 mg 08/24/20 00:11 08/24/20 00:15 Hydromorphone 0.5 Mg/0.5 Ml Syringe IVPUSH 08/24/20 00:12 0.5 mg ONETIME ONE Administration Diltiazem HCl 100 mg/ Sodium 100 mls @ 5 mls/hr 08/23/20 23:45 Chloride IV TITRATE ELIF Protocol 5 MG/HR Ondansetron HCl 4 mg 08/23/20 23:54 08/24/20 00:02 Ondansetron 4 Mg/2 Ml Sdv IVPUSH 08/23/20 23:55 4 mg ONETIME ONE Administration Ondansetron HCl 4 mg 08/24/20 01:43 08/24/20 01:48 Ondansetron 4 Mg/2 Ml Sdv IVPUSH 08/24/20 01:44 4 mg ONETIME ONE Administration - Re-Assessments/Exams Free Text/Narrative Re-Assessment/Exam: 08/23/20 23:55 As above, the patient was well until around 1700 this evening, when she suddenly developed nausea, vomiting, abdominal pain, and left sided chest pain that radiates to her left jaw. The patient has had this several times in the past, and review of prior medical records indicates that she had similar symptoms in April 2019, when I last saw her. At that time, we found her to be in atrial fibrillation, which is what her triage ECG indicates at this time, as well. She is not able to sense when she is in atrial fibrillation, stating that it just m akes her feel ill. A work-up, including several blood tests and a portable chest x-ray were ordered by triage; I have added a TSH level. The patient will be treated with diltiazem push and drip, along with some IV Zofran and IV fluid. She is already on Eliquis. I anticipate that she will need to be admitted. 08/24/20 00:12 The patient may have converted to a normal sinus rhythm. We are obtaining a repeat ECG. In the meantime, the patient is still complaining of chest and abdominal pain, therefore I have ordered Dilaudid 0.5 mg IVP. 08/24/20 00:22 The repeat ECG confirms that the patient is in a normal sinus rhythm. The earlier-seen ST depressions in V2V6 have resolved. Portable chest radiograph reviewed. The cardiac silhouette is within normal limits. A sizable hiatal hernia is noted. No pulmonary vascular congestion. No pleural effusions seen on this AP view. No focal infiltrate. No pneumothorax. Formal read per the Radiologist pending. The patient's CBC is unremarkable. Her CMP is remarkable for an anion gap slightly elevated at 16.8, but with a bicarbonate normal at 28. Her BUN/Cr are slightly elevated at 30/1.2, and she has mild hyperglycemia of 168, with the remainder of her CMP being unremarkable. Her magnesium level is within normal limits at 1.9. Her troponin is within normal limits at 0.034. Her CRP is within normal limits at 0.4. Her TSH is elevated at 6.677. Review of prior labs finds that the patient's TSH was elevated at 7.539 on 04/29/2019. 08/24/20 00:53 Test results discussed with the patient - her daughter is not currently present. As above, today's work-up is unremarkable, however, she stated that while she is feeling somewhat better, she is still not feeling well, therefore I recommended placement into observation overnight. The patient agreed. Case discussed with Dr. Landers here in the ED. He agreed to place the patient into observation on telemetry. Departure - Departure Time of Disposition: 00:54 Disposition: Refer to Observation Condition: Good Clinical Impression: Paroxysmal atrial fibrillation with rapid ventricular response, Nausea & vomiting, Elevated TSH Abdominal pain Qualifiers: Abdominal location: left upper quadrant Qualified Code(s): R10.12 - Left upper quadrant pain Chest pain Qualifiers: Chest pain type: unspecified Qualified Code(s): R07.9 - Chest pain, unspecified Sepsis Event Note (ED) - Evaluation Sepsis Screening Result: No Definite Risk - Focused Exam Vital Signs: Vital Signs Temp Pulse Resp BP Pulse Ox 08/23/20 22:33 35.8 C L 118 H 16 149/99 H 92 L - My Orders Last 24 Hours: My Active Orders 08/23/20 22:30 Chest 1V Frontal [CR] Stat 08/23/20 22:32 EKG 12 Lead [EK] Stat 08/23/20 23:45 Sodium Chloride 0.9% [Normal Saline] 1,000 ml IV ASDIRECTED - Assessment/Plan Last 24 Hours: My Active Orders 08/23/20 22:30 Chest 1V Frontal [CR] Stat 08/23/20 22:32 EKG 12 Lead [EK] Stat 08/23/20 23:45 Sodium Chloride 0.9% [Normal Saline] 1,000 ml IV ASDIRECTED
[2020-08-24] MEDS: Sodium Chloride 0.9% 1,000 ML IV SCH ×2 (00:02→09:44)
[2020-08-24] MEDS ORDERED: HYDROmorphone 0.5 MG/0.5 ML Syringe IVPUSH ONE (00:11)
[2020-08-24] MEDS ORDERED: Ondansetron 4 MG/2 ML SDV IVPUSH ONE (01:43)
[2020-08-24] MEDS ORDERED: Ondansetron 4 MG/2 ML SDV IV PRN (03:43)
[2020-08-24] MEDS ORDERED: LORazepam 2 MG/ML SDV IVPUSH PRN (03:44)
--- NOTE | 2020-08-24 06:51 | CR ---
Chest: Portable view of the chest was obtained. Comparison: Prior chest x-ray of 04/29/19. Moderately large hiatal hernia is noted. Heart size appears within normal limits for portable technique. Upper mediastinum is normal. Lungs are clear with no acute parenchymal change. No acute bony abnormality is appreciated. Impression: 1. Moderately large hiatal hernia. 2. Nothing acute is seen on portable chest x-ray. Diagnostic code #2
[2020-08-24] MEDS: Aspirin 325 MG Tab.EC PO SCH (08:01)
[2020-08-24] MEDS: Pantoprazole 40 MG Vial IVPUSH SCH (08:01)
[2020-08-24] MEDS: Ondansetron 8 MG in Sodium Chloride 0.9% 50 ML IV PRN ×2 (08:02→16:49)
[2020-08-24] MEDS ORDERED: hydrALAZINE 20 MG/ML SDV IVPUSH ONE (08:14)
[2020-08-24] MEDS ORDERED: Metoclopramide 10 MG/2 ML SDV IVPUSH ONE (09:28)
--- NOTE | 2020-08-24 10:41 | PCM.HP.2 ---
H&P History of Present Illness - General Date of Service: 08/23/20 Admit Problem/Dx: Admission Diagnosis/Problem Admission Diagnosis/Problem Chest pain/nausea and vomiting Source of Information: Patient, Provider History Limitations: Reports: No Limitations - History of Present Illness Initial Comments - Free Text/Narative: 08/23/20 85 old previously healthy female who presented to e.r with nausea and vomiting with left chest pain radiating to neck and shoulder and jaw . symptoms thought to be related to recurrent a fib which causes her palp. symptoms and to feel lousy and become nauseated. patient converted on own in e.r. yet cont to have left shoulder pain mild to mod. (2-4 ) . she denies diaphoresis,chills ,fever ,headache ,sputum or coughing. she has no hx of gallbladder disease or recent food intolerances. 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 she has no other cv events but she has abnormal ekg findings both with afib and without. she denies any exertional chest pain in previouos month or rest angina. she has chronic gerd and gets nausea and headache when she does go into afib with rvr.poor r wave progression across ane ekg after conversion shows lahb and st depression across anterior leads about 1 mm. which is the same as her ekg from 2 years previous, she has poor r wave progression seen on all ekgs but no changes or actual q waves seen . she denies any focal weakness episodes. Onset of Symptoms: Reports: Today Duration of Symptoms: Reports: Hour(s): (8), Constant, Intermittent Location: Reports: Chest, Upper Extremity, Left Quality: Reports: Pressure Severity: Moderate Improves with: Reports: None Worsens with: Reports: Movement Associated Symptoms: Reports: No Other Symptoms Chest Pain Score (Numeric/FACES): 8 - Related Data Allergies/Adverse Reactions: Allergies Allergy/AdvReac Type Severity Reaction Status Date / Time clindamycin Allergy Cannot Verified 08/23/20 22:37 Remember iodine Allergy Anaphylactic Verified 08/23/20 22:37 Shock Penicillins Allergy Cannot Verified 08/23/20 22:37 Remember shellfish derived Allergy Cannot Verified 08/23/20 22:37 Remember morphine AdvReac Anxiety Verified 08/23/20 22:37 pumice Allergy Swelling Uncoded 04/18/21 22:37 Home Medications: Home Meds Enalapril Maleate 5 mg PO DAILY 11/13/18 [History] Chlorthalidone 12.5 mg PO DAILY 04/29/19 [History] atorvaSTATin [Lipitor] 10 mg PO DAILY 04/29/19 [History] carvediloL [Coreg] 3.125 mg PO BID 04/29/19 [History] Apixaban [Eliquis] 5 mg PO BID 08/23/20 [History] Past Medical History HEENT History: Reports: None, Impaired Vision Other HEENT History: Wears eyeglasses and has a large bridge Cardiovascular History: Reports: None, Afib, High Cholesterol, Hypertension Other Cardiovascular History: Paroxysmal A. Fib Respiratory History: Reports: None Gastrointestinal History: Reports: None, Colon Polyp, Diverticulosis, GERD, Hiatal Hernia Other Gastrointestinal History: diverticulitis Genitourinary History: Reports: None, Urinary Incontinence Other Genitourinary History: Patient reports dribbling of urine [employer] History: Reports: Musculoskeletal History: Reports: Arthritis, Osteoarthritis Neurological History: Reports: Migraines Psychiatric History: Reports: None Endocrine/Metabolic History: Reports: None (tsh 6.5/ hashimotos antibodies sent . will check thyriod u.s), Obesity/BMI 30+ Hematologic History: Reports: Anticoagulation Therapy Immunologic History: Reports: None Oncologic (Cancer) History: Reports: None Dermatologic History: Reports: None - Infectious Disease History Infectious Disease History: Reports: None, Chicken Pox, Measles - Past Surgical History Head Surgeries/Procedures: Reports: None HEENT Surgical History: Reports: Tonsillectomy Cardiovascular Surgical History: Reports: None GI Surgical History: Reports: Colonoscopy, EGD Female Surgical History: Reports: Hysterectomy Endocrine Surgical History: Reports: None Musculoskeletal Surgical History: Reports: Knee Replacement Other Musculoskeletal Surgeries/Procedures:: bilateral knee replacements Oncologic Surgical History: Reports: Biopsy of Breast Social & Family History - Family History Family Medical History: No Pertinent Family History Cardiac: Reports: Afib, High Cholesterol, Hypertension - Tobacco Use Tobacco Use Status *Q: Never Tobacco User Second Hand Smoke Exposure: No - Caffeine Use Caffeine Use: Reports: Coffee - Recreational Drug Use Recreational Drug Use: No - Living Situation & Occupation Living situation: Reports: , with Spouse Occupation: Retired H&P Review of Systems - Review of Systems: Review Of Systems: See Below General: Reports: Weakness HEENT: Reports: No Symptoms Pulmonary: Reports: No Symptoms Cardiovascular: Reports: Chest Pain Gastrointestinal: Reports: Nausea Genitourinary: Reports: Incontinence Musculoskeletal: Reports: No Symptoms Skin: Reports: No Symptoms Psychiatric: Reports: No Symptoms Neurological: Reports: Headache Hematologic/Lymphatic: Reports: No Symptoms Immunologic: Reports: Food Allergy. Denies: No Symptoms Exam - Exam Exam: See Below - Vital Signs Vital Signs: Last Vital Signs Temp 36.7 C 08/24/20 07:40 Pulse 65 08/24/20 07:40 Resp 16 08/24/20 07:40 BP 160/116 H 08/24/20 08:07 Pulse Ox 98 08/24/20 07:40 Weight: 72.303 kg - Exam General: Alert, Oriented, 4 HEENT: PERRLA, Hearing Intact, Mucosa Moist & [place], Nares Patent, Normal Nasal Septum, Posterior Pharynx Clear, Conjunctiva Clear, EOMI, EACs Clear, TMs Clear Neck: Supple, Trachea Midline, 2 Lungs: Clear to Auscultation, Normal Respiratory Effort Cardiovascular: Regular Rate, Regular Rhythm GI/Abdominal Exam: Normal Bowel Sounds, Soft, Non-Tender, No Organomegaly, No Distention, No Abnormal Bruit, No Mass, Pelvis Stable. No: Guarding, Rigid, Rebound, Tender, Abnormal Bowel Sounds, Hepatomegaly, Splenomegaly (Female) Exam: Normal External Exam, Normal Speculum Exam, Normal Bimanual Exam Rectal (Female) Exam: Deferred. No: Normal Exam, Normal Rectal Tone Back Exam: Normal Inspection, Full Range of Motion Extremities: Normal Inspection, Normal Range of Motion, Non-Tender, No Pedal Edema, Normal Capillary Refill Peripheral Pulses: 2+: Carotid (R), Brachial (L) Skin: Warm, Dry, Intact Neurological: Cranial Nerves Intact, Reflexes Equal Bilateral, Normal Gait, Normal Speech, Normal Tone, Sensation Intact Neuro Extensive - Mental Status: Alert, Oriented x3, Normal Mood/Affect, Normal Cognition Neuro Extensive - Motor, Sensory, Reflexes: CN II-XII Intact, Normal Gait, Normal Reflexes Psychiatric: Alert, Normal Affect, Normal Mood Physical Exam Comments:: left chest wall tenderness and normal shoulder exam . - Patient Data Lab Results Last 24 hrs: Laboratory Results - last 24 hr 08/23/20 08/23/20 08/23/20 Range/Units 22:30 22:30 22:30 WBC 9.12 (3.98-10.04) K/mm3 RBC 4.48 (3.98-5.22) M/mm3 Hgb 14.4 D (11.2-15.7) gm/dl Hct 43.4 (34.1-44.9) % MCV 96.9 H (79.4-94.8) fl MCH 32.1 (25.6-32.2) pg MCHC 33.2 (32.2-35.5) g/dl RDW Std Deviation 48.7 H (36.4-46.3) fL Plt Count 209 (182-369) K/mm3 MPV 11.4 (9.4-12.3) fl Neut % (Auto) 82.9 H (34.0-71.1) % Lymph % (Auto) 12.8 L (19.3-51.7) % [place] % (Auto) 4.1 L (4.7-12.5) % Eos % (Auto) 0.1 L (0.7-5.8) Baso % (Auto) 0.0 L (0.1-1.2) % Neut # (Auto) 7.56 H (1.56-6.13) K/mm3 Lymph # (Auto) 1.17 L (1.18-3.74) K/mm3 [place] # (Auto) 0.37 H (0.24-0.36) K/mm3 Eos # (Auto) 0.01 L (0.04-0.36) K/mm3 Baso # (Auto) 0.00 L (0.01-0.08) K/mm3 D-Dimer, Quantitative (0.19-0.50) mg/L Sodium 140 (136-145) mEq/L Potassium 3.8 (3.5-5.1) mEq/L Chloride 99 (98-107) mEq/L Carbon Dioxide 28 (21-32) mEq/L Anion Gap 16.8 H (5-15) BUN 30 H (7-18) mg/dL Creatinine 1.2 H (0.55-1.02) mg/dL Est Cr Clr Drug Dosing TNP Estimated GFR (MDRD) 43 (>60) mL/min BUN/Creatinine Ratio 25.0 H (14-18) Glucose 168 H (83-115) mg/dL Calcium 9.4 (8.5-10.1) mg/dL Magnesium 1.9 (1.8-2.4) mg/dl Total Bilirubin 0.7 (0.2-1.0) mg/dL AST 28 (15-37) U/L ALT 29 (14-59) U/L Alkaline Phosphatase 85 (46-116) U/L CK-MB (CK-2) (0-3.6) ng/ml Troponin I 0.034 (0.00-0.056) ng/mL C-Reactive Protein 0.4 (<1.0) mg/dL NT-Pro-B Natriuret Pep (0-450) pg/mL Total Protein 7.4 (6.4-8.2) g/dl Albumin 4.2 (3.4-5.0) g/dl Globulin 3.2 gm/dL Albumin/Globulin Ratio 1.3 (1-2) TSH 3rd Generation 6.677 H (0.358-3.74) uIU/mL SARS-CoV-2 RNA (LEN) (NEGATIVE) 08/24/20 08/24/20 08/24/20 Range/Units 01:17 06:07 06:07 WBC (3.98-10.04) K/mm3 RBC (3.98-5.22) M/mm3 Hgb (11.2-15.7) gm/dl Hct (34.1-44.9) % MCV (79.4-94.8) fl MCH (25.6-32.2) pg MCHC (32.2-35.5) g/dl RDW Std Deviation (36.4-46.3) fL Plt Count (182-369) K/mm3 MPV (9.4-12.3) fl Neut % (Auto) (34.0-71.1) % Lymph % (Auto) (19.3-51.7) % [place] % (Auto) (4.7-12.5) % Eos % (Auto) (0.7-5.8) Baso % (Auto) (0.1-1.2) % Neut # (Auto) (1.56-6.13) K/mm3 Lymph # (Auto) (1.18-3.74) K/mm3 [place] # (Auto) (0.24-0.36) K/mm3 Eos # (Auto) (0.04-0.36) K/mm3 Baso # (Auto) (0.01-0.08) K/mm3 D-Dimer, Quantitative 0.24 (0.19-0.50) mg/L Sodium 140 (136-145) mEq/L Potassium 3.8 (3.5-5.1) mEq/L Chloride 100 (98-107) mEq/L Carbon Dioxide 29 (21-32) mEq/L Anion Gap 14.8 (5-15) BUN 27 H (7-18) mg/dL Creatinine 1.1 H (0.55-1.02) mg/dL Est Cr Clr Drug Dosing 28.73 Estimated GFR (MDRD) 47 (>60) mL/min BUN/Creatinine Ratio 24.5 H (14-18) Glucose 165 H (83-115) mg/dL Calcium 8.7 (8.5-10.1) mg/dL Magnesium (1.8-2.4) mg/dl Total Bilirubin (0.2-1.0) mg/dL AST (15-37) U/L ALT (14-59) U/L Alkaline Phosphatase (46-116) U/L CK-MB (CK-2) 2.7 (0-3.6) ng/ml Troponin I 0.077 H* (0.00-0.056) ng/mL C-Reactive Protein (<1.0) mg/dL NT-Pro-B Natriuret Pep (0-450) pg/mL Total Protein (6.4-8.2) g/dl Albumin (3.4-5.0) g/dl Globulin gm/dL Albumin/Globulin Ratio (1-2) TSH 3rd Generation (0.358-3.74) uIU/mL SARS-CoV-2 RNA (LEN) Negative (NEGATIVE) 08/24/20 Range/Units 06:07 WBC (3.98-10.04) K/mm3 RBC (3.98-5.22) M/mm3 Hgb (11.2-15.7) gm/dl Hct (34.1-44.9) % MCV (79.4-94.8) fl MCH (25.6-32.2) pg MCHC (32.2-35.5) g/dl RDW Std Deviation (36.4-46.3) fL Plt Count (182-369) K/mm3 MPV (9.4-12.3) fl Neut % (Auto) (34.0-71.1) % Lymph % (Auto) (19.3-51.7) % [place] % (Auto) (4.7-12.5) % Eos % (Auto) (0.7-5.8) Baso % (Auto) (0.1-1.2) % Neut # (Auto) (1.56-6.13) K/mm3 Lymph # (Auto) (1.18-3.74) K/mm3 [place] # (Auto) (0.24-0.36) K/mm3 Eos # (Auto) (0.04-0.36) K/mm3 Baso # (Auto) (0.01-0.08) K/mm3 D-Dimer, Quantitative (0.19-0.50) mg/L Sodium (136-145) mEq/L Potassium (3.5-5.1) mEq/L Chloride (98-107) mEq/L Carbon Dioxide (21-32) mEq/L Anion Gap (5-15) BUN (7-18) mg/dL Creatinine (0.55-1.02) mg/dL Est Cr Clr Drug Dosing Estimated GFR (MDRD) (>60) mL/min BUN/Creatinine Ratio (14-18) Glucose (83-115) mg/dL Calcium (8.5-10.1) mg/dL Magnesium (1.8-2.4) mg/dl Total Bilirubin (0.2-1.0) mg/dL AST (15-37) U/L ALT (14-59) U/L Alkaline Phosphatase (46-116) U/L CK-MB (CK-2) (0-3.6) ng/ml Troponin I (0.00-0.056) ng/mL C-Reactive Protein (<1.0) mg/dL NT-Pro-B Natriuret Pep 2630 H (0-450) pg/mL Total Protein (6.4-8.2) g/dl Albumin (3.4-5.0) g/dl Globulin gm/dL Albumin/Globulin Ratio (1-2) TSH 3rd Generation (0.358-3.74) uIU/mL SARS-CoV-2 RNA (LEN) (NEGATIVE) Result Diagrams: 08/23/20 22:30 08/24/20 06:07 Sepsis Event Note - Evaluation Sepsis Screening Result: No Definite Risk - Focused Exam Vital Signs: Vital Signs Temp Temp Pulse Pulse Resp BP BP 08/24/20 08:07 160/116 H 08/24/20 07:40 36.7 C 65 16 08/24/20 02:29 36.7 C 67 12 159/79 H 08/23/20 22:33 35.8 C L 118 H 16 149/99 H Pulse Ox 08/24/20 08:07 08/24/20 07:40 98 08/24/20 02:29 97 08/23/20 22:33 92 L - Problem List (1) Chest pain SNOMED Code(s): 84719648 ICD Code: R07.9 - CHEST PAIN, UNSPECIFIED Status: Acute Priority: Medium Current Visit: Yes Onset Date: ~08/23/20 Problem Details: pain still mild this am .chest wall tenderness noted around left breast. Qualifiers: Chest pain type: precordial pain Qualified Code(s): R07.2 - Precordial pain (2) Atrial fibrillation and flutter SNOMED Code(s): 253390350 ICD Code: I48.91 - UNSPECIFIED ATRIAL FIBRILLATION; I48.92 - UNSPECIFIED ATRIAL FLUTTER Status: Acute Priority: Medium Current Visit: No Onset Date: ~08/23/20 Problem Details: converted to nsr and trop .34 with ekg changesst depression without q waves which were seen on previous ekgs, lahb and poor r wave prog. noted previously . Problem List Initiated/Reviewed/Updated: Yes Orders Last 24hrs: Active Orders 24 hr Category Date Time Status Patient Status [ADT] Routine ADT 08/24/20 10:12 Active Intake and Output [RC] 04,16 Care 08/24/20 03:56 Active Oxygen Therapy [RC] ASDIRECTED Care 08/24/20 03:30 Active Regular Diet [DIET] Diet 08/24/20 Breakfast Active Echo Comp wo Cont [US] Routine Exams 08/24/20 08:00 Taken TROPONIN I [CHEM] Routine Lab 08/24/20 11:00 Ordered Apixaban [Eliquis] Med 08/24/20 09:30 Pending 5 mg PO BID Aspirin [Ecotrin] Med 08/24/20 09:00 Active 325 mg PO DAILY Chlorthalidone Med 08/24/20 09:30 Ordered 12.5 mg PO DAILY Enalapril [Vasotec] Med 08/24/20 09:30 Ordered 10 mg PO DAILY Enalapril [Vasotec] Med 08/24/20 21:00 Once 10 mg PO ONETIME ONE LORazepam [Ativan] Med 08/24/20 03:44 Active 0.5 mg IVPUSH Q6H PRN Metoclopramide [Reglan] Med 08/24/20 15:30 Active 10 mg IVPUSH Q6H PRN Ondansetron [Zofran] 8 mg Med 08/24/20 03:51 Active Sodium Chloride 0.9% [Normal Saline] 50 ml IV Q8H Pantoprazole [ProTONIX IV] Med 08/24/20 09:00 Active 40 mg IVPUSH DAILY Sodium Chloride 0.9% [Normal Saline] 1,000 ml Med 08/23/20 23:45 Active IV ASDIRECTED atorvaSTATin Med 08/24/20 09:30 Ordered 10 mg PO DAILY carvediloL [Coreg] Med 08/24/20 09:30 Ordered 3.125 mg PO BID Code Status [Resuscitation Status] Routine Resus Stat 08/24/20 04:34 Ordered EKG 12 Lead [EK] Stat Ther 08/23/20 22:32 Stop Req EKG 12 Lead [EK] Stat Ther 08/24/20 08:00 Ordered Medication Orders Apixaban (Apixaban 5 Mg Tab) 5 mg PO BID ELIF Aspirin (Aspirin 325 Mg Tab.Ec) 325 mg PO DAILY ELIF Last Admin: 08/24/20 08:01 Dose: 325 mg Documented by: SANAZ Carvedilol (Carvedilol 6.25 Mg Tab) 3.125 mg PO BID [facility] Chlorthalidone (Chlorthalidone 25 Mg Tab) 12.5 mg PO DAILY [facility] Enalapril Maleate (Enalapril 5 Mg Tab) 10 mg PO DAILY [facility] Enalapril Maleate (Enalapril 5 Mg Tab) 10 mg PO ONETIME ONE Stop: 08/24/20 21:01 Sodium Chloride (Normal Saline) 1,000 mls @ 100 mls/hr IV ASDIRECTED [facility] Last Admin: 08/24/20 09:44 Dose: 100 mls/hr Documented by: Infusion: 08/24/20 09:44 Dose: 100 mls/hr Documented by: Admin: 08/24/20 00:02 Dose: 100 mls/hr Documented by: GABRIELE Ondansetron HCl 8 mg/ Sodium (Chloride) 54 mls @ 216 mls/hr IV Q8H PRN PRN Reason: NAUSEA Last Admin: 08/24/20 08:02 Dose: 216 mls/hr Documented by: SANAZ Lorazepam (Lorazepam 2 Mg/Ml Sdv) 0.5 mg IVPUSH Q6H PRN PRN Reason: Anxiety Metoclopramide HCl (Metoclopramide 10 Mg/2 Ml Sdv) 10 mg IVPUSH Q6H PRN PRN Reason: Nausea Non-Formulary Medication (Atorvastatin) 10 mg PO DAILY [facility] Pantoprazole Sodium (Pantoprazole 40 Mg Vial) 40 mg IVPUSH DAILY [facility] Last Admin: 08/24/20 08:01 Dose: 40 mg Documented by: SANAZ Assessment/Plan Comment:: 08/23/20 afebrile vss telemetry no recurrent a fib, no ekg changes , no improvement in vomiting and will admit to observation . boh 08/24/20 afebrile , vomiting stopped after reglan but now recurrent again this am. c/o left shoulder and chest pain but mostly vomitng and nausea. mild headache vss sats stable trop increased to .7 ekg . poor r wave prog. lahb . mild persistent st depression anterior leads without q waves. p.e. nauseated . skin warm and well perfused ,no chills noted. neuro :no weakness dysarthria or limitations, memory and affect normal lungs clear. cor rrr without murmur,s3/4 pulses good br and carotids abd soft non tender. ms normal skin no lesions thyroid mildly enlarged without def. nodules . assess: 1)afib with rvr in sinus rhythm. 2) possible ischemia / ekg not changing but persistent symptoms despite converting. similar to prev. presentation but ekg shows persistant st depression. check echo but does not appear to be pericarditis,anerysm or def. ami . consider stress test when stable . 3)hx of previous poor r wave changes without q waves , lahb , paf and q.t prolongation . 4) hx of gerd on elaquis and no evidence of g.i cause of symptoms but persistant n/v . 5) hypertension and unable to restart oral meds . started i.v hydralazine and b.p better. plan reglan added to zofran. recheck tsh and free t4 , thyriod u.s repeat trop and cont i.v meds for b.p . cont elaquis a nd give lovenox today . boh - Mortality Measure Prognosis:: Good
[2020-08-24] MEDS ORDERED: Apixaban 5 MG Tab PO SCH (10:45)
[2020-08-24] MEDS ORDERED: Sodium Chloride 0.9% 1,000 ML IV SCH (11:45)
[2020-08-24] MEDS: D5 1/2 NS w/ 20 mEq/L KCl 1,000 ML IV SCH (11:57)
[2020-08-24] MEDS: Enalapril 5 MG Tab PO SCH (13:52)
[2020-08-24] MEDS: Chlorthalidone 25 MG Tab PO SCH (13:52)
[2020-08-24] MEDS: Carvedilol 3.125 MG Tab PO SCH ×2 (13:52→20:14)
[2020-08-24] MEDS: atorvaSTATin 20 MG Tab PO SCH (13:52)
--- NOTE | 2020-08-24 14:18 | PCM.SN.2 ---
- Free Text/Narrative Note: 08/24/20 p.m note doing some better . reglan and zofran given . repeat trop increased to .111 normal range to .056. will repeat ekg . i.v hydralazine given and not able to tolerate p.o yet so lovenox started. assess . 1suspected acute non stemi ischemia despite converting to nsr. echo pending , cont anticoag with lovenox cont i.v beta gerard , cont telemetry. start i.v. plavix. repeat ekg boh
[2020-08-24] MEDS ORDERED: Metoprolol Tartrate 5 MG in Sodium Chloride 0.9% 50 ML IV ONE (16:25)
[2020-08-24] MEDS ORDERED: Ondansetron 4 MG/2 ML SDV ONE (16:30)
[2020-08-24] MEDS ORDERED: Metoprolol Tartrate 5 MG/5 ML SDV IV ONE (16:45)
[2020-08-24] MEDS: Enoxaparin 60 MG/0.6 ML Syringe SUBCUT SCH (17:48)
[2020-08-24] MEDS: Metoclopramide 10 MG/2 ML SDV IVPUSH PRN (20:15)
[2020-08-24] MEDS ORDERED: Enalapril 5 MG Tab PO ONE (21:00)
[2020-08-25] MEDS: D5 1/2 NS w/ 20 mEq/L KCl 1,000 ML IV SCH ×2 (00:40→15:28)
[2020-08-25] MEDS: Metoclopramide 10 MG/2 ML SDV IVPUSH PRN ×2 (01:46→16:37)
[2020-08-25] MEDS ORDERED: Aspirin 81 MG Tab.Chew ONE (02:16)
[2020-08-25] MEDS ORDERED: Aspirin 81 MG Tab.Chew PO ONE (02:18)
[2020-08-25] MEDS: Enoxaparin 60 MG/0.6 ML Syringe SUBCUT SCH ×2 (05:27→16:52)
--- NOTE | 2020-08-25 07:51 | CR ---
Chest: Portable view of the chest was obtained. Comparison: Prior chest x-ray of 08/23/20. Moderately large left-sided hiatal hernia is seen. Heart size is within normal limits. Upper mediastinum is within normal limits. Increased density within the right lung base is seen as an interval change from prior exam. This may represent minimal pneumonia or area of atelectasis. No acute osseous abnormality is appreciated. Degenerative change is scattered within the spine. Impression: 1. Hiatal hernia. 2. Slight increased density within the right lung base as noted above. Diagnostic code #3 I agree with preliminary report from [facility] finalized on 08/25/20, 4:15 AM CDT, code #1
[2020-08-25] MEDS: Chlorthalidone 25 MG Tab PO SCH (08:28)
[2020-08-25] MEDS: atorvaSTATin 20 MG Tab PO SCH (08:28)
[2020-08-25] MEDS: Enalapril 5 MG Tab PO SCH (08:28)
[2020-08-25] MEDS: Aspirin 325 MG Tab.EC PO SCH (08:28)
[2020-08-25] MEDS: Carvedilol 3.125 MG Tab PO SCH (08:29)
[2020-08-25] MEDS: Pantoprazole 40 MG Vial IVPUSH SCH (08:30)
[2020-08-25] MEDS: Ondansetron 8 MG in Sodium Chloride 0.9% 50 ML IV PRN (08:44)
--- NOTE | 2020-08-25 10:30 | PCM.SN.2 ---
- Free Text/Narrative Note: 08/24/20 pm note doing better nausea resolving , feels better and sitting up. vss/ ekg shows slight st depression across anterior leads < 1mm but greatest in v3/4. no q waves other than old lateral and inferior changes seen on ekg form previous years. no afib in regular rhythm/// switched to i.v meds sec to nausea and mild bradicardia with i.v metoprolol and so given 2.5 mg . denies chest pain , left arm pain resolved .hungry and tolerating sips h2o. lab troponins elevated from .077 to .111 to .195 this am assess: 1) non st elavation mi ? anterior distribution as no clear cut ekg changes. presented with afib rvr which converted in e.r on own and no signs of worsening heart block,but fluctuation of q.t. interval with conversion from afib to sinus . prolonged >.msecs with afib then .493 after conversion. beta gerard held initially but seems stable and low dose i.v metoprolol given sec. to non stemi m.i. 2) afib converted to sinus . cont elaquis but given lovenox sec . to nausea/vomiting of meds. 3) elavated blood glucose noted on labs , check a1c to rule out diabetes. plan discussed with family and recommend cardiology consult and possible angiogram. recheck trop in am and discuss further eval with cardiology . boh
[2020-08-25] MEDS: Nitroglycerin 0.4 MG Tab.SL SL PRN ×2 (16:29→16:39)
[2020-08-25] MEDS ORDERED: Potassium Chloride 10 MEQ in Premix Bag 1 BAG IV SCH (16:30)
[2020-08-25] MEDS ORDERED: Heparin Sodium 5,000 Units/ML Vial IVPUSH ONE (17:15)
[2020-08-25] MEDS ORDERED: Heparin Sodium/D5W 500 ML IV SCH (17:15)
[2020-08-25 17:24] VITALS: BP 140/53; PULSE 62
--- NOTE | 2020-08-25 17:59 | PCM.DCSUM1 ---
Discharge Summary - Hospital Course Free Text/Narrative:: 08/25/20 540 pm patient having intermitant chest kip this am and again this afternoon after her walk. ntg x 2 relieved completely after 5 minutes.nauseated and vomited again. o2 at 2 l n.c and sats stable a nd heart rate in 60-68 range. ekg poor r prog. but no st changes noted. trop 0.82 (coming down from this am ) baseline pt and ptt drawn. p.e. improved color and vss as recorded . lungs clear and equal. cor rrr soft syst. m no s3/s4. alert and oriented. discussed this am with cardiology Dr Brown and agree she needs further cardiology eval,prob angiogram for unstable angina. afib control good on cardilol. prolonged qt interval stable over last 48 hours but still prolonged around .48 msec. anticoagulation with lovenox s.q and heparin drip started with last episode of angina with full l.d . tsh to be reassessed for possible hypothyroidism / Janeth antibodies pending. called this afternoon and accepted for transfer by Dr. Duong and conferred by hospitalist and one call . she needs air flight sec. to off and on again instability . air flight sec. to helicopter grounded. transport team here . patient stabilized as best as can be and no chest pain since ntg. mildly sob and not anxious or fearful . discussed situation with family and agreeable with transfer to [facility] for further eval and stabilization. boh - Discharge Data Discharge Date: 08/25/20 Discharge Disposition: DC/Tfer to Acute Hospital 02 Condition: Serious - Referral to Home Health Primary Care Physician: Tate Madden MD - Discharge Diagnosis/Problem(s) (1) Chest pain SNOMED Code(s): 29996933 ICD Code: R07.9 - CHEST PAIN, UNSPECIFIED Status: Acute Priority: Medium Current Visit: Yes Onset Date: ~08/23/20 Problem Details: pain still mild this am .chest wall tenderness noted around left breast. 08/25/20 recurrent chest pain after back in bed. precordial and mild santizo. given ntg x 2 with partial relief transferred to icu/ discussed with Dr Duong,and Dr Brown and there is now a bed available and feel she is haviung anginal episodes and will start niutro drip and transfer for prob. angiogram . boh Qualifiers: Chest pain type: precordial pain Qualified Code(s): R07.2 - Precordial pain (2) Atrial fibrillation and flutter SNOMED Code(s): 590112793 ICD Code: I48.91 - UNSPECIFIED ATRIAL FIBRILLATION; I48.92 - UNSPECIFIED ATRIAL FLUTTER Status: Acute Priority: Medium Current Visit: No Onset Date: ~08/23/20 Problem Details: converted to nsr and trop .34 with ekg changesst depression without q waves which were seen on previous ekgs, lahb and poor r wave prog. noted previously . (3) Elevated TSH SNOMED Code(s): 750714540 ICD Code: R79.89 - OTHER SPECIFIED ABNORMAL FINDINGS OF BLOOD CHEMISTRY Status: Acute Priority: Low Current Visit: Yes Onset Date: ~08/23/20 Problem Details: mildly elavated tsh recheck and hashimotos antibodies pending. (4) Nausea & vomiting SNOMED Code(s): 87501442 ICD Code: R11.2 - NAUSEA WITH VOMITING, UNSPECIFIED Status: Acute Priority: Low Current Visit: Yes Onset Date: ~08/22/20 Qualifiers: Vomiting type: unspecified - Patient Instructions Diet: Heart Healthy Diet - Discharge Plan Home Medications: Home Meds Enalapril Maleate 5 mg PO DAILY 11/13/18 [History] Chlorthalidone 12.5 mg PO DAILY 04/29/19 [History] atorvaSTATin [Lipitor] 10 mg PO DAILY 04/29/19 [History] carvediloL [Coreg] 3.125 mg PO BID 04/29/19 [History] Apixaban [Eliquis] 5 mg PO BID 08/23/20 [History] Aspirin [Ecotrin EC] 325 mg PO DAILY tab.ec 08/25/20 [Rx] Enalapril [Vasotec] 10 mg PO DAILY tablet 08/25/20 [Rx] Nitroglycerin [Nitrostat] 0.4 mg SL Q5M PRN tab.sl 08/25/20 [Rx] Pantoprazole [ProTONIX IV] 40 mg IVPUSH DAILY vial 08/25/20 [Rx] atorvaSTATin [Lipitor] 10 mg PO DAILY tablet 08/25/20 [Rx] Oxygen Therapy Mode: Nasal Cannula (2 liters) Oxygen Flow Rate (L/min): 2 Patient Handouts: Heart Attack Forms: ED Department Discharge Referrals: Cammie Gallego MD [Ordering Only Provider] - (Cardiology. They will contact you or your daughter to schedule an appointment. ) Tate Madden MD [Primary Care Provider] - - Discharge Summary/Plan Comment DC Time >30 min.: Yes - General Info Date of Service: 08/25/20 Admission Dx/Problem (Free Text: Rich LIVE Admission History & Physical Patient Name: LIVE MCMILLAN Date of : 1935 Patient Status: Inpatient Attending Provider: Michael Russo Date: 08/24/20 10:13 Initialization Date: 08/24/20 10:13 H&P History of Present Illness - General Date of Service: 08/23/20 Admit Problem/Dx: Admission Diagnosis/Problem Admission Diagnosis/Problem Chest pain/nausea and vomiting Source of Information: Patient, Provider History Limitations: Reports: No Limitations - History of Present Illness Initial Comments - Free Text/Narative: 08/23/20 85 old previously healthy female who presented to e.r with nausea and vomiting with left chest pain radiating to neck and shoulder and jaw . symptoms thought to be related to recurrent a fib which causes her palp. symptoms and to feel lousy and become nauseated. patient converted on own in e.r. yet cont to have left shoulder pain mild to mod. (2-4 ) . she denies diaphoresis,chills ,fever ,headache ,sputum or coughing. she has no hx of gallbladder disease or recent food intolerances. 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 she has no other cv events but she has abnormal ekg findings both with afib and without. she denies any exertional chest pain in previouos month or rest angina. she has chronic gerd and gets nausea and headache when she does go into afib with rvr.poor r wave progression across ane ekg after conversion shows lahb and st depression across anterior leads about 1 mm. which is the same as her ekg from 2 years previous, she has poor r wave progression seen on all ekgs but no changes or actual q waves seen . she denies any focal weakness episodes. Onset of Symptoms: Reports: Today Duration of Symptoms: Reports: Hour(s): (8), Constant, Intermittent Location: Reports: Chest, Upper Extremity, Left Quality: Reports: Pressure Severity: Moderate Improves with: Reports: None Worsens with: Reports: Movement Associated Symptoms: Reports: No Other Symptoms Chest Pain Score (Numeric/FACES): 8 - Related Data Allergies/Adverse Reactions: Allergies Allergy/AdvReac Type Severity Reaction Status Date / Time clindamycin Allergy Cannot Verified 08/23/20 22:37 Remember iodine Allergy Anaphylactic Verified 08/23/20 22:37 Shock Penicillins Allergy Cannot Verified 08/23/20 22:37 Remember shellfish derived Allergy Cannot Verified 08/23/20 22:37 Remember morphine AdvReac Anxiety Verified 08/23/20 22:37 pumice Allergy Swelling Uncoded 08/23/20 22:37 Home Medications: Home Meds Enalapril Maleate 5 mg PO DAILY 11/13/18 [History] Chlorthalidone 12.5 mg PO DAILY 04/29/19 [History] atorvaSTATin [Lipitor] 10 mg PO DAILY 04/29/19 [History] carvediloL [Coreg] 3.125 mg PO BID 04/29/19 [History] Apixaban [Eliquis] 5 mg PO BID 08/23/20 [History] Past Medical History HEENT History: Reports: None, Impaired Vision Other HEENT History: Wears eyeglasses and has a large bridge Cardiovascular History: Reports: None, Afib, High Cholesterol, Hypertension Other Cardiovascular History: Paroxysmal A. Fib Respiratory History: Reports: None Gastrointestinal History: Reports: None, Colon Polyp, Diverticulosis, GERD, Hiatal Hernia Other Gastrointestinal History: diverticulitis Genitourinary History: Reports: None, Urinary Incontinence Other Genitourinary History: Patient reports dribbling of urine FISHER History: Reports: Musculoskeletal History: Reports: Arthritis, Osteoarthritis Neurological History: Reports: Migraines Psychiatric History: Reports: None Endocrine/Metabolic History: Reports: None (tsh 6.5/ hashimotos antibodies sent . will check thyriod u.s), Obesity/BMI 30+ Hematologic History: Reports: Anticoagulation Therapy Immunologic History: Reports: None Oncologic (Cancer) History: Reports: None Dermatologic History: Reports: None - Infectious Disease History Infectious Disease History: Reports: None, Chicken Pox, Measles - Past Surgical History Head Surgeries/Procedures: Reports: None HEENT Surgical History: Reports: Tonsillectomy Cardiovascular Surgical History: Reports: None GI Surgical History: Reports: Colonoscopy, EGD Female Surgical History: Reports: Hysterectomy Endocrine Surgical History: Reports: None Musculoskeletal Surgical History: Reports: Knee Replacement Other Musculoskeletal Surgeries/Procedures:: bilateral knee replacements Oncologic Surgical History: Reports: Biopsy of Breast Social & Family History - Family History Family Medical History: No Pertinent Family History Cardiac: Reports: Afib, High Cholesterol, Hypertension - Tobacco Use Tobacco Use Status *Q: Never Tobacco User Second Hand Smoke Exposure: No - Caffeine Use Caffeine Use: Reports: Coffee - Recreational Drug Use Recreational Drug Use: No - Living Situation & Occupation Living situation: Reports: , with Spouse Occupation: Retired H&P Review of Systems - Review of Systems: Review Of Systems: See Below General: Reports: Weakness HEENT: Reports: No Symptoms Pulmonary: Reports: No Symptoms Cardiovascular: Reports: Chest Pain Gastrointestinal: Reports: Nausea Genitourinary: Reports: Incontinence Musculoskeletal: Reports: No Symptoms Skin: Reports: No Symptoms Psychiatric: Reports: No Symptoms Neurological: Reports: Headache Hematologic/Lymphatic: Reports: No Symptoms Immunologic: Reports: Food Allergy. Denies: No Symptoms Exam - Exam Exam: See Below - Vital Signs Vital Signs: Last Vital Signs Temp 36.7 C 08/24/20 07:40 Pulse 65 08/24/20 07:40 Resp 16 08/24/20 07:40 BP 160/116 H 08/24/20 08:07 Pulse Ox 98 08/24/20 07:40 Weight: 72.303 kg - Exam General: Alert, Oriented, 4 HEENT: PERRLA, Hearing Intact, Mucosa Moist & [place], Nares Patent, Normal Nasal Septum, Posterior Pharynx Clear, Conjunctiva Clear, EOMI, EACs Clear, TMs Clear Neck: Supple, Trachea Midline, 2 Lungs: Clear to Auscultation, Normal Respiratory Effort Cardiovascular: Regular Rate, Regular Rhythm GI/Abdominal Exam: Normal Bowel Sounds, Soft, Non-Tender, No Organomegaly, No Distention, No Abnormal Bruit, No Mass, Pelvis Stable. No: Guarding, Rigid, Rebound, Tender, Abnormal Bowel Sounds, Hepatomegaly, Splenomegaly (Female) Exam: Normal External Exam, Normal Speculum Exam, Normal Bimanual Exam Rectal (Female) Exam: Deferred. No: Normal Exam, Normal Rectal Tone Back Exam: Normal Inspection, Full Range of Motion Extremities: Normal Inspection, Normal Range of Motion, Non-Tender, No Pedal Edema, Normal Capillary Refill Peripheral Pulses: 2+: Carotid (R), Brachial (L) Skin: Warm, Dry, Intact Neurological: Cranial Nerves Intact, Reflexes Equal Bilateral, Normal Gait, Normal Speech, Normal Tone, Sensation Intact Neuro Extensive - Mental Status: Alert, Oriented x3, Normal Mood/Affect, Normal Cognition Neuro Extensive - Motor, Sensory, Reflexes: CN II-XII Intact, Normal Gait, Normal Reflexes Psychiatric: Alert, Normal Affect, Normal Mood Physical Exam Comments:: left chest wall tenderness and normal shoulder exam . boh - Review of Systems General: Reports: No Symptoms HEENT: Reports: No Symptoms Pulmonary: Reports: No Symptoms Cardiovascular: Reports: No Symptoms Gastrointestinal: Reports: No Symptoms Genitourinary: Reports: No Symptoms Musculoskeletal: Reports: No Symptoms Skin: Reports: No Symptoms Neurological: Reports: No Symptoms Psychiatric: Reports: No Symptoms - Patient Data Vitals - Most Recent: Last Vital Signs Temp 36.7 C 08/25/20 15:23 Pulse 62 08/25/20 17:23 Resp 16 08/25/20 17:23 BP 140/53 L 08/25/20 17:23 Pulse Ox 93 L 08/25/20 15:23 Weight - Most Recent: 72.121 kg I&O - Last 24 hours: Intake & Output 08/25/20 08/25/20 08/25/20 06:59 14:59 22:59 Intake Total 840 120 750 Output Total 400 1100 Balance 440 120 -350 Lab Results - Last 24 hrs: Laboratory Results - last 24 hr 08/24/20 08/24/20 08/25/20 Range/Units 16:30 17:12 02:34 WBC 9.98 (3.98-10.04) K/mm3 RBC 4.21 (3.98-5.22) M/mm3 Hgb 13.4 (11.2-15.7) gm/dl Hct 40.8 (34.1-44.9) % MCV 96.9 H (79.4-94.8) fl MCH 31.8 (25.6-32.2) pg MCHC 32.8 (32.2-35.5) g/dl RDW Std Deviation 49.8 H (36.4-46.3) fL Plt Count 197 (182-369) K/mm3 MPV 10.9 (9.4-12.3) fl Neut % (Auto) 85.8 H (34.0-71.1) % Lymph % (Auto) 6.6 L (19.3-51.7) % Simpson % (Auto) 7.4 (4.7-12.5) % Eos % (Auto) 0 L (0.7-5.8) Baso % (Auto) 0.0 L (0.1-1.2) % Neut # (Auto) 8.56 H (1.56-6.13) K/mm3 Lymph # (Auto) 0.66 L (1.18-3.74) K/mm3 Simpson # (Auto) 0.74 H (0.24-0.36) K/mm3 Eos # (Auto) 0.00 L (0.04-0.36) K/mm3 Baso # (Auto) 0.00 L (0.01-0.08) K/mm3 Manual Slide Review Abnormal smear PT (9.7-12.0) SECONDS INR Sodium 137 (136-145) mEq/L Potassium 3.4 L (3.5-5.1) mEq/L Chloride 101 (98-107) mEq/L Carbon Dioxide 27 (21-32) mEq/L Anion Gap 12.4 (5-15) BUN 25 H (7-18) mg/dL Creatinine 1.3 H (0.55-1.02) mg/dL Est Cr Clr Drug Dosing 24.31 mL/min Estimated GFR (MDRD) 39 (>60) mL/min BUN/Creatinine Ratio 19.2 H (14-18) Glucose 158 H (83-115) mg/dL Calcium 8.4 L (8.5-10.1) mg/dL Phosphorus 2.8 (2.6-4.7) mg/dL Magnesium 1.7 L (1.8-2.4) mg/dl CK-MB (CK-2) 2.8 (0-3.6) ng/ml Troponin I 0.195 H* 0.126 H* (0.00-0.056) ng/mL NT-Pro-B Natriuret Pep (0-450) pg/mL 08/25/20 08/25/20 Range/Units 02:47 02:47 WBC (3.98-10.04) K/mm3 RBC (3.98-5.22) M/mm3 Hgb (11.2-15.7) gm/dl Hct (34.1-44.9) % MCV (79.4-94.8) fl MCH (25.6-32.2) pg MCHC (32.2-35.5) g/dl RDW Std Deviation (36.4-46.3) fL Plt Count (182-369) K/mm3 MPV (9.4-12.3) fl Neut % (Auto) (34.0-71.1) % Lymph % (Auto) (19.3-51.7) % Simpson % (Auto) (4.7-12.5) % Eos % (Auto) (0.7-5.8) Baso % (Auto) (0.1-1.2) % Neut # (Auto) (1.56-6.13) K/mm3 Lymph # (Auto) (1.18-3.74) K/mm3 Simpson # (Auto) (0.24-0.36) K/mm3 Eos # (Auto) (0.04-0.36) K/mm3 Baso # (Auto) (0.01-0.08) K/mm3 Manual Slide Review PT 11.9 (9.7-12.0) SECONDS INR 1.11 Sodium (136-145) mEq/L Potassium (3.5-5.1) mEq/L Chloride (98-107) mEq/L Carbon Dioxide (21-32) mEq/L Anion Gap (5-15) BUN (7-18) mg/dL Creatinine (0.55-1.02) mg/dL Est Cr Clr Drug Dosing mL/min Estimated GFR (MDRD) (>60) mL/min BUN/Creatinine Ratio (14-18) Glucose (83-115) mg/dL Calcium (8.5-10.1) mg/dL Phosphorus (2.6-4.7) mg/dL Magnesium (1.8-2.4) mg/dl CK-MB (CK-2) (0-3.6) ng/ml Troponin I (0.00-0.056) ng/mL NT-Pro-B Natriuret Pep 7946 H (0-450) pg/mL Med Orders - Current: Current Medications Aspirin (Aspirin 325 Mg Tab.Ec) 325 mg PO DAILY [facility] Last Admin: 08/25/20 08:28 Dose: 325 mg Documented by: Atorvastatin Calcium (Atorvastatin 20 Mg Tab) 10 mg PO DAILY [facility] Last Admin: 08/25/20 08:28 Dose: 10 mg Documented by: Carvedilol (Carvedilol 3.125 Mg Tab) 3.125 mg PO BID [facility] Last Admin: 08/25/20 08:29 Dose: 3.125 mg Documented by: Chlorthalidone (Chlorthalidone 25 Mg Tab) 12.5 mg PO DAILY [facility] Last Admin: 08/25/20 08:28 Dose: Not Given Documented by: Enalapril Maleate (Enalapril 5 Mg Tab) 10 mg PO DAILY [facility] Last Admin: 08/25/20 08:28 Dose: Not Given Documented by: Ondansetron HCl 8 mg/ Sodium (Chloride) 54 mls @ 216 mls/hr IV Q8H PRN PRN Reason: NAUSEA Last Admin: 08/25/20 08:44 Dose: 216 mls/hr Documented by: Potassium Chloride/Dextrose/Sod Cl (D5 1/2 Ns W/ 20 Meq/L Kcl) 1,000 mls @ 75 mls/hr IV ASDIRECTED [facility] Last Admin: 08/25/20 15:28 Dose: 75 mls/hr Documented by: Potassium Chloride 10 meq/ (Premix) 100 mls @ 100 mls/hr IV Q1H [facility] Stop: 08/25/20 18:29 Last Admin: 08/25/20 16:48 Dose: 100 mls/hr Documented by: Heparin Sodium/Dextrose (Heparin 25,000 Units In D5w 500 Ml) 500 mls @ 17.309 mls/hr IV TITRATE [facility]; Protocol Lorazepam (Lorazepam 2 Mg/Ml Sdv) 0.5 mg IVPUSH Q6H PRN PRN Reason: Anxiety Metoclopramide HCl (Metoclopramide 10 Mg/2 Ml Sdv) 10 mg IVPUSH Q6H PRN PRN Reason: Nausea Last Admin: 08/25/20 16:37 Dose: 10 mg Documented by: Nitroglycerin (Nitroglycerin 0.4 Mg Tab.Sl) 0.4 mg SL Q5M PRN PRN Reason: Chest Pain Last Admin: 08/25/20 16:39 Dose: 0.4 mg Documented by: Pantoprazole Sodium (Pantoprazole 40 Mg Vial) 40 mg IVPUSH DAILY [facility] Last Admin: 08/25/20 08:30 Dose: 40 mg Documented by: Discontinued Medications Apixaban (Apixaban 5 Mg Tab) 5 mg PO BID [facility] Last Admin: 08/24/20 13:52 Dose: Not Given Documented by: Aspirin (Aspirin 81 Mg Tab.Chew) 162 mg PO ONETIME ONE Stop: 08/25/20 02:19 Last Admin: 08/25/20 02:21 Dose: 162 mg Documented by: Aspirin (Aspirin 81 Mg Tab.Chew) Confirm Administered Dose 162 mg .ROUTE .STK- MED ONE Stop: 08/25/20 02:17 Last Admin: 08/25/20 02:22 Dose: Not Given Documented by: Diltiazem HCl (Diltiazem 50 Mg/10 Ml Sdv) 10 mg IVPUSH ONETIME STA Stop: 08/23/20 23:52 Last Admin: 08/24/20 04:27 Dose: Not Given Documented by: Enalapril Maleate (Enalapril 5 Mg Tab) 10 mg PO ONETIME ONE Stop: 08/24/20 21:01 Last Admin: 08/24/20 20:15 Dose: 10 mg Documented by: Enoxaparin Sodium (Enoxaparin 60 Mg/0.6 Ml Syringe) 60 mg SUBCUT Q12H [facility] Last Admin: 08/25/20 16:52 Dose: 60 mg Documented by: Heparin Sodium (Porcine) (Heparin Sodium 5,000 Units/Ml Vial) 4,000 units IVPUSH BOLUS ONE; Protocol Stop: 08/25/20 17:16 Last Admin: 08/25/20 17:28 Dose: 4,000 units Documented by: Hydralazine HCl (Hydralazine 20 Mg/Ml Sdv) 10 mg IVPUSH ONETIME ONE Stop: 08/24/20 08:15 Last Admin: 08/24/20 08:33 Dose: 10 mg Documented by: Hydromorphone HCl (Hydromorphone 0.5 Mg/0.5 Ml Syringe) 0.5 mg IVPUSH ONETIME ONE Stop: 08/24/20 00:12 Last Admin: 08/24/20 00:15 Dose: 0.5 mg Documented by: Diltiazem HCl 100 mg/ Sodium (Chloride) 100 mls @ 5 mls/hr IV TITRATE [facility]; Protocol Sodium Chloride (Normal Saline) 1,000 mls @ 50 mls/hr IV ASDIRECTED [facility] Last Admin: 08/24/20 09:44 Dose: 100 mls/hr Documented by: Sodium Chloride (Normal Saline) 1,000 mls @ 75 mls/hr IV ASDIRECTED [facility] Metoclopramide HCl (Metoclopramide 10 Mg/2 Ml Sdv) 10 mg IVPUSH ONETIME ONE Stop: 08/24/20 09:29 Last Admin: 08/24/20 09:38 Dose: 10 mg Documented by: Metoprolol Tartrate (Metoprolol Tartrate 5 Mg/5 Ml Sdv) 5 mg IV ONETIME ONE Stop: 08/24/20 16:46 Last Admin: 08/24/20 16:48 Dose: 2.5 mg Documented by: Ondansetron HCl (Ondansetron 4 Mg/2 Ml Sdv) 4 mg IVPUSH ONETIME ONE Stop: 08/23/20 23:55 Last Admin: 08/24/20 00:02 Dose: 4 mg Documented by: Ondansetron HCl (Ondansetron 4 Mg/2 Ml Sdv) 4 mg IVPUSH ONETIME ONE Stop: 08/24/20 01:44 Last Admin: 08/24/20 01:48 Dose: 4 mg Documented by: Ondansetron HCl (Ondansetron 4 Mg/2 Ml Sdv) Confirm Administered Dose 8 mg .ROUTE .STK-MED ONE Stop: 08/24/20 16:31 Last Admin: 08/24/20 16:38 Dose: Not Given Documented by: - Exam General: Reports: Alert, Oriented HEENT: Reports: Pupils Equal, Pupils Reactive, EOMI, Mucous Membr. Moist/[place] Neck: Reports: Supple Lungs: Reports: Clear to Auscultation, Normal Respiratory Effort Cardiovascular: Reports: Regular Rate, Regular Rhythm GI/Abdominal Exam: Normal Bowel Sounds, Soft, Non-Tender, No Organomegaly, No Distention, No Abnormal Bruit, No Mass, Pelvis Stable (Female) Exam: Normal External Exam, Normal Speculum Exam, Normal Bimanual Exam Rectal (Female) Exam: Normal Exam, Normal Rectal Tone Back Exam: Reports: Normal Inspection, Full Range of Motion Extremities: Normal Inspection, Normal Range of Motion, Non-Tender, No Pedal Edema, Normal Capillary Refill Skin: Reports: Warm, Dry, Intact Wound/Incisions: Reports: Healing Well Neurological: Reports: No New Focal Deficit Psy/Mental Status: Reports: Alert, Normal Affect, Normal Mood
== END 2020-08-25 17:46 | DRG 309 ==
LOC: JD.ED 22:21 → JD.MS 08-24 01:51 → OBSVTOIN 08-24 10:12
PROVIDERS: ADMIT Pediatrics; ATTEND Pediatrics
DX: I48.0 Paroxysmal atrial fibrillation (principal); I20.0 Unstable angina; R07.9 Chest pain, unspecified; R94.6 Abnormal results of thyroid function studies; R07.2 Precordial pain; R79.89 Other specified abnormal findings of blood chemistry; I10 Essential (primary) hypertension; R11.2 Nausea with vomiting, unspecified; H54.7 Unspecified visual loss; E78.00 Pure hypercholesterolemia, unspecified; M19.90 Unspecified osteoarthritis, unspecified site; Z88.6 Allergy status to analgesic agent; K21.9 Gastro-esophageal reflux disease without esophagitis; K44.9 Diaphragmatic hernia without obstruction or gangrene; R32 Unspecified urinary incontinence; Z91.048 Other nonmedicinal substance allergy status; G43.909 Migraine, unspecified, not intractable, without status migrainosus; K57.90 Diverticulosis of intestine, part unspecified, without perforation or abscess without bleeding; Z96.653 Presence of artificial knee joint, bilateral; Z20.822 Contact with and (suspected) exposure to COVID-19; Z79.899 Other long term (current) drug therapy; Z79.82 Long term (current) use of aspirin; Z88.1 Allergy status to other antibiotic agents; Z88.8 Allergy status to other drugs, medicaments and biological substances; Z79.01 Long term (current) use of anticoagulants; Z86.010 Personal history of colon polyps; Z90.89 Acquired absence of other organs; Z90.710 Acquired absence of both cervix and uterus; Z88.0 Allergy status to penicillin; Z91.013 Allergy to seafood; Z88.5 Allergy status to narcotic agent
CPT/HCPCS: 36415 ×2; 71045; 80048; 80053; 82553; 83735; 83880; 84439; 84443; 84484 ×2; 85025; 85379; 86140; 93005 ×3; 93306; A9270; C9113; J0360; J1170; J2405 ×3; J2765; J7030 ×2; U0002; 84100; 85610; 85730; 93010; 94760; 96374; 96375; 96376; 99285; 99285-25; J1644; J1650; J3480; J3490

== ENCOUNTER 2023-06-01 10:22 | Day surgery (SDC) | payer MEDICARE, OTHER ==
[~2023-06-01 10:22] MED LIST: Cefuroxime 10 MG/ML SYRINGE EYERT SCH; Lidocaine 1% PF 2 ML SDV INJECT SCH
[2023-06-01] MEDS: Polymyxin B/Trimethoprim 10 ML Bottle EYERT SCH ×2 (10:45→12:41)
[2023-06-01] MEDS: Pilocarpine 4% Ophth Soln 15 ML Bot EYERT SCH ×3 (10:45→12:41)
[2023-06-01] MEDS: Brimonidine 0.2% Ophth Soln 5 ML Bottle EYERT SCH ×3 (10:50→12:41)
[2023-06-01] MEDS: Phenylephrine 2.5% Ophth Soln 2 ML Bot EYERT SCH ×6 (10:55→12:15)
[2023-06-01] MEDS: Tropicamide 1% Ophth Soln 3 ML Bottle EYERT SCH ×4 (11:02→11:56)
[2023-06-01] MEDS: Tetracaine HCl/PF 0.5% 4 ML Bottle EYEBOTH SCH ×5 (12:00→12:29)
[2023-06-01 13:47] VITALS: BP 149/71; PULSE 57
== END 2023-06-01 12:55 ==
LOC: JD.SDS 10:22
PROVIDERS: ATTEND Ophthalmology
DX: H25.813 Combined forms of age-related cataract, bilateral (principal); H35.372 Puckering of macula, left eye; H35.342 Macular cyst, hole, or pseudohole, left eye; H35.3132 Nonexudative age-related macular degeneration, bilateral, intermediate dry stage; H35.363 Drusen (degenerative) of macula, bilateral; H40.013 Open angle with borderline findings, low risk, bilateral; H02.831 Dermatochalasis of right upper eyelid; H02.834 Dermatochalasis of left upper eyelid; H16.103 Unspecified superficial keratitis, bilateral; H16.223 Keratoconjunctivitis sicca, not specified as Sjogren's, bilateral; I10 Essential (primary) hypertension; E78.2 Mixed hyperlipidemia; I48.0 Paroxysmal atrial fibrillation; K21.9 Gastro-esophageal reflux disease without esophagitis; Z79.82 Long term (current) use of aspirin; Z79.01 Long term (current) use of anticoagulants; Z79.899 Other long term (current) drug therapy; Z88.5 Allergy status to narcotic agent; Z88.1 Allergy status to other antibiotic agents; Z88.0 Allergy status to penicillin; Z91.041 Radiographic dye allergy status; Z91.013 Allergy to seafood
CPT/HCPCS: 66984; A9270; J0697; C1780; J3490

== ENCOUNTER 2023-06-01 13:00 | Emergency (ER) | payer MEDICARE, OTHER ==
[2023-06-01] MEDS ORDERED: Aspirin 81 MG Tab.Chew PO ONE (13:40)
[2023-06-01 14:08] LABS: EOSINOPHILS PERCENT AUTO 0.2 % (0.0-6.0); IMMATURE GRAN ABSOLUTE AUTO 0.01 K/mm3 (0.00-0.05); IMMATURE GRAN PERCENT AUTO 0.2 % (0.0-0.4); LYMPHOCYTES ABSOLUTE AUTO 1.8 K/mm3 (1.0-4.8); LYMPHOCYTES PERCENT AUTO 32.5 % (24.0-44.0); MEAN CORPUSCULAR HEMOGLOBIN 31.8 pg (28.0-32.0); MEAN CORPUSCULAR HGB CONC 33.3 g/dl (32.0-36.0); MEAN CORPUSCULAR VOLUME 95.5 fl (83.0-99.0); MONOCYTES ABSOLUTE AUTO 0.6 K/mm3 (0.0-0.8); MONOCYTES PERCENT AUTO 10.5 % (0.0-8.0); NEUTROPHILS ABSOLUTE AUTO 3.1 K/mm3 (1.8-7.7); NEUTROPHILS PERCENT AUTO 56.6 % (41.0-71.0); PLATELET COUNT,PLT 208 K/mm3 (150-400); RED BLOOD CELL COUNT 3.77 M/mm3 (4.10-5.30); WHITE BLOOD CELL COUNT,WBC 5.51 K/mm3 (3.9-11.3)
[2023-06-01 14:23] LABS: CORONAVIRUS COVID-19 NAA POSITIVE (NEGATIVE); INFLUENZA A NAA NEGATIVE (NEGATIVE); RESPIRATORY SYNCYTIAL VIR NAA NEGATIVE (NEGATIVE)
[2023-06-01 14:47] LABS: APPEARANCE,URINE CLEAR (Clear); BILIRUBIN,URINE NEGATIVE (Negative); COLOR,URINE YELLOW (Yellow); GLUCOSE,URINE NEGATIVE (Negative); KETONES,URINE NEGATIVE (Negative); LEUKOCYTE ESTERASE,URINE NEGATIVE (Negative); NITRITE,URINE NEGATIVE (Negative); OCCULT BLOOD,URINE NEGATIVE (Negative); PH,URINE 7.5 (5.0-8.0); PROTEIN,URINE NEGATIVE (Negative); UROBILINOGEN,URINE 0.2 (0.2-1.0)
[2023-06-01 14:48] LABS: ALBUMIN 3.3 g/dl (3.4-5.0); BILIRUBIN TOTAL 0.7 mg/dL (0.2-1.0); BUN/CREATININE RATIO 22.2 (14-18); CALCIUM 9.3 mg/dL (8.5-10.1); CREATININE 0.9 mg/dL (0.55-1.02); EST CRCL DRUG DOSING (CG) 31.63 mL/min; PROTEIN TOTAL,TP 6.6 g/dl (6.4-8.2)
[2023-06-01 14:58] LABS: BACTERIA,URINE FEW /hpf (FEW); EPITHELIAL CELLS,URINE 0-5 /hpf (0-5); MUCUS,URINE FEW /hpf (FEW); RBC,URINE 0-5 /hpf (0-5); WBC,URINE 0-5 /hpf (0-5)
[2023-06-01 17:21] VITALS: BP 161/67; PULSE 59
== END 2023-06-01 17:12 | disposition home or self-care (01) ==
LOC: JD.ED 13:00
DX: U07.1 COVID-19 (principal); I10 Essential (primary) hypertension; E78.00 Pure hypercholesterolemia, unspecified; Z79.01 Long term (current) use of anticoagulants; Z88.1 Allergy status to other antibiotic agents; Z91.041 Radiographic dye allergy status; Z88.0 Allergy status to penicillin; Z88.5 Allergy status to narcotic agent; Z91.013 Allergy to seafood; Z91.048 Other nonmedicinal substance allergy status
CPT/HCPCS: 0241U; 36415; 71045; 80053; 81001; 83880; 84145; 84484; 85025; 85379; 93005; 99285; 93010; 99283

== ENCOUNTER 2023-06-29 08:27 | Day surgery (SDC) | payer MEDICARE, OTHER ==
[2023-06-29] MEDS: Polymyxin B/Trimethoprim 10 ML Bottle EYELF SCH (08:23)
[2023-06-29] MEDS: Brimonidine 0.2% Ophth Soln 5 ML Bottle EYELF SCH (08:28)
[2023-06-29] MEDS: Phenylephrine 2.5% Ophth Soln 2 ML Bot EYELF SCH (08:32)
[2023-06-29] MEDS: Tropicamide 1% Ophth Soln 3 ML Bottle EYELF SCH (08:35)
[2023-06-29] MEDS: ALPRAZolam 0.25 MG Tab PO SCH (08:56)
[2023-06-29] MEDS: Tetracaine HCl/PF 0.5% 4 ML Bottle EYEBOTH SCH (09:41)
[2023-06-29] MEDS: Lidocaine 1% PF 2 ML SDV INJECT SCH (10:09)
[2023-06-29] MEDS: Cefuroxime 10 MG/ML SYRINGE EYELF SCH (10:20)
[2023-06-29] MEDS: Pilocarpine 4% Ophth Soln 15 ML Bot EYELF SCH (10:22)
[2023-06-29 10:32] VITALS: BP 152/53; PULSE 60
== END 2023-06-29 10:30 | disposition home or self-care (01) ==
LOC: JD.SDS 08:27
PROVIDERS: ATTEND Ophthalmology
DX: H25.812 Combined forms of age-related cataract, left eye (principal); H40.051 Ocular hypertension, right eye; H21.81 Floppy iris syndrome; H35.3132 Nonexudative age-related macular degeneration, bilateral, intermediate dry stage; H35.363 Drusen (degenerative) of macula, bilateral; H40.013 Open angle with borderline findings, low risk, bilateral; H02.831 Dermatochalasis of right upper eyelid; H02.834 Dermatochalasis of left upper eyelid; H16.103 Unspecified superficial keratitis, bilateral; H16.223 Keratoconjunctivitis sicca, not specified as Sjogren's, bilateral; H35.372 Puckering of macula, left eye; H35.342 Macular cyst, hole, or pseudohole, left eye; I10 Essential (primary) hypertension; E78.2 Mixed hyperlipidemia; Z96.1 Presence of intraocular lens; K21.9 Gastro-esophageal reflux disease without esophagitis; I48.0 Paroxysmal atrial fibrillation; Z79.01 Long term (current) use of anticoagulants; Z79.899 Other long term (current) drug therapy
CPT/HCPCS: A9270-GY; C1780; J0697; J3490

== ENCOUNTER 2025-04-16 14:36 | Inpatient (IN) | payer MEDICARE, OTHER ==
[2025-04-16 15:16] LABS: BASOPHILS ABSOLUTE AUTO 0.0 K/mm3 (0.0-0.2); BASOPHILS PERCENT AUTO 0.2 % (0.0-1.0); EOSINOPHILS ABSOLUTE AUTO 0.0 K/mm3 (0.0-0.4); EOSINOPHILS PERCENT AUTO 0.0 % (0.0-6.0); IMMATURE GRAN ABSOLUTE AUTO 0.01 K/mm3 (0.00-0.05); IMMATURE GRAN PERCENT AUTO 0.2 % (0.0-0.4); LYMPHOCYTES ABSOLUTE AUTO 2.5 K/mm3 (1.0-4.8); LYMPHOCYTES PERCENT AUTO 39.2 % (24.0-44.0); MEAN PLATELET VOLUME 10.9 fl (9.4-12.3); MONOCYTES ABSOLUTE AUTO 0.9 K/mm3 (0.0-0.8); MONOCYTES PERCENT AUTO 13.8 % (0.0-8.0); NEUTROPHILS ABSOLUTE AUTO 3.0 K/mm3 (1.8-7.7); NEUTROPHILS PERCENT AUTO 46.6 % (41.0-71.0); NRBC ABSOLUTE 0.00 (0.00-0.02); NRBC PERCENT 0.0 % (0.0-0.2); PLATELET COUNT,PLT 184 K/mm3 (150-400); RED BLOOD CELL COUNT 4.39 M/mm3 (4.10-5.30); WHITE BLOOD CELL COUNT,WBC 6.40 K/mm3 (3.9-11.3)
[2025-04-16 15:39] LABS: A/G RATIO 1.2 (1-2); ALANINE AMINOTRANSFERASE,ALT 20 U/L (14-59); ASPARTATE AMNIOTRANSFERASE,AST 19 U/L (15-37); BILIRUBIN TOTAL 0.7 mg/dL (0.2-1.0); BLOOD UREA NITROGEN,BUN 21 mg/dL (7-18); CARBON DIOXIDE,CO2 30 mEq/L (21-32); CHLORIDE,CL 104 mEq/L (98-107); CHOLESTEROL HDL 53 mg/dL (40-59); CHOLESTEROL LDL DIRECT 86 mg/dL (<100); CHOLESTEROL TOTAL 163 mg/dL (<200); CREATININE 1.3 mg/dL (0.55-1.02); ESTIMATED GFR 39 mL/min (>60); GLUCOSE RANDOM 113 mg/dL (70-99); POTASSIUM,K 4.1 mEq/L (3.5-5.1); PROTEIN TOTAL,TP 6.5 g/dl (6.4-8.2); SODIUM,NA 142 mEq/L (136-145)
[2025-04-16 15:45] LABS: INR 1.03
[2025-04-16] MEDS ORDERED: Ondansetron 4 MG/2 ML SDV IV PRN (16:58)
[2025-04-16] MEDS ORDERED: hydrALAZINE 20 MG/ML SDV IVPUSH PRN (17:02)
[2025-04-17 05:42] LABS: MEAN PLATELET VOLUME 11.8 fl (9.4-12.3); NRBC ABSOLUTE 0.00 (0.00-0.02); NRBC PERCENT 0.0 % (0.0-0.2); PLATELET COUNT,PLT 177 K/mm3 (150-400); RED BLOOD CELL COUNT 4.03 M/mm3 (4.10-5.30); WHITE BLOOD CELL COUNT,WBC 4.66 K/mm3 (3.9-11.3)
[2025-04-17 05:47] LABS: A/G RATIO 1.1 (1-2); ALANINE AMINOTRANSFERASE,ALT 9.0 U/L (14-59); ASPARTATE AMNIOTRANSFERASE,AST 14.0 U/L (15-37); BILIRUBIN TOTAL 0.8 mg/dL (0.2-1.0); BLOOD UREA NITROGEN,BUN 22.0 mg/dL (7-18); CARBON DIOXIDE,CO2 30.0 mEq/L (21-32); CHLORIDE,CL 107.0 mEq/L (98-107); CREATININE 1.1 mg/dL (0.55-1.02); EST CRCL DRUG DOSING (CG) 24.9 mL/min; ESTIMATED GFR 48.0 mL/min (>60); GLUCOSE RANDOM 98.0 mg/dL (70-99); POTASSIUM,K 4.0 mEq/L (3.5-5.1); PROTEIN TOTAL,TP 5.4 g/dl (6.4-8.2); SODIUM,NA 143.0 mEq/L (136-145)
[2025-04-18 05:25] LABS: MEAN PLATELET VOLUME 11.5 fl (9.4-12.3); NRBC ABSOLUTE 0.00 (0.00-0.02); NRBC PERCENT 0.0 % (0.0-0.2); PLATELET COUNT,PLT 173 K/mm3 (150-400); RED BLOOD CELL COUNT 4.17 M/mm3 (4.10-5.30); WHITE BLOOD CELL COUNT,WBC 5.81 K/mm3 (3.9-11.3)
[2025-04-18 05:53] LABS: A/G RATIO 1.1 (1-2); ALANINE AMINOTRANSFERASE,ALT 15.0 U/L (14-59); ASPARTATE AMNIOTRANSFERASE,AST 17.0 U/L (15-37); BILIRUBIN TOTAL 0.7 mg/dL (0.2-1.0); BLOOD UREA NITROGEN,BUN 24.0 mg/dL (7-18); CARBON DIOXIDE,CO2 30.0 mEq/L (21-32); CHLORIDE,CL 106.0 mEq/L (98-107); CREATININE 1.1 mg/dL (0.55-1.02); EST CRCL DRUG DOSING (CG) 24.9 mL/min; ESTIMATED GFR 48.0 mL/min (>60); GLUCOSE RANDOM 98.0 mg/dL (70-99); POTASSIUM,K 3.9 mEq/L (3.5-5.1); PROTEIN TOTAL,TP 5.5 g/dl (6.4-8.2); SODIUM,NA 142.0 mEq/L (136-145)
[2025-04-18 09:56] VITALS: BP 119/68; PULSE 62
== END 2025-04-18 10:49 | disposition home or self-care (01) | DRG 69 ==
LOC: JD.ED 14:36 → JD.MS 16:15
PROVIDERS: ADMIT Internal Medicine; ATTEND Internal Medicine
DX: G45.9 Transient cerebral ischemic attack, unspecified (principal); I48.20 Chronic atrial fibrillation, unspecified; I48.92 Unspecified atrial flutter; R29.810 Facial weakness; I10 Essential (primary) hypertension; E78.00 Pure hypercholesterolemia, unspecified; Z91.041 Radiographic dye allergy status; K21.9 Gastro-esophageal reflux disease without esophagitis; M19.90 Unspecified osteoarthritis, unspecified site; E66.9 Obesity, unspecified; H54.7 Unspecified visual loss; Z96.659 Presence of unspecified artificial knee joint; Z79.01 Long term (current) use of anticoagulants; Z88.1 Allergy status to other antibiotic agents; Z88.0 Allergy status to penicillin; Z88.5 Allergy status to narcotic agent; Z88.8 Allergy status to other drugs, medicaments and biological substances; Z91.013 Allergy to seafood; Z91.048 Other nonmedicinal substance allergy status; Z79.899 Other long term (current) drug therapy; Z87.19 Personal history of other diseases of the digestive system; Z86.0100 Personal history of colon polyps, unspecified; Z90.89 Acquired absence of other organs; Z90.710 Acquired absence of both cervix and uterus
CPT/HCPCS: 36415; 70450; 70450-26; 70551; 70551-26; 80053; 80061; 83036; 85025; 85027; 85610; 93005; 93010; 93306; 93880; 93880-26; 97112-GP; 97116-GP; 97162-GP; 97166-GO; 97535-GO; 99285; A9270-GY